=== PATIENT | female | born 1945 | race Caucasian/White ===

== ENCOUNTER 2016-05-04 04:34 | Inpatient (IN) | payer MEDICARE, OTHER ==
--- NOTE | ~2016-05-04 | EKG ---
PATIENT: ANGELA DOUGLAS UNIT #: [id number] Ventricular Rate: 114 BPM Atrial Rate: 83 BPM QRS Duration: 98 ms Q-T Interval: 356 ms QTC Calculation(Bezet): 490 ms Calculated R Brighton: -29 degrees Calculated T Brighton: 161 degrees Diagnosis Line: Atrial fibrillation with rapid ventricular Diagnosis Line: response Diagnosis Line: Poor R wave progression questionable lead position Diagnosis Line: or body habitus Diagnosis Line: T wave abnormality, consider lateral ischemia Diagnosis Line: Abnormal ECG Diagnosis Line: No previous ECGs available Diagnosis Line: Confirmed by TREY BACK MD ([id number]) on 05/04/2016 Diagnosis Line: 6:15:33 PM INTERPRETING MD: WONG WAGONER
--- NOTE | ~2016-05-04 | DS ---
Unit #: [id number] #: [id number] Patient: ANGELA DOUGLAS [id number] [address] [place], [place] [address] [id number] I MR#: [id number] NAME: ANGELA DOUGLAS. ROOM: 578 Age: 70 Sex: F Admission Date: 05/04/2016 : 1945 Discharge Date: 05/06/2016 Attending Physician: Valentino Das M.D. DISCHARGE SUMMARY DISCHARGE DIAGNOSES 1. Acute respiratory failure. 2. Acute on chronic diastolic and systolic heart failure. 3. Acute kidney injury. 4. Diabetes type 2. HOSPITAL COURSE The patient is a 70-year-old female who had apparently just been released from rehab the day prior. She got home, and she noted increased shortness of breath and noted that she was too short of breath to climb stairs and ambulate in her home. As a result, she presented to the emergency department where she was admitted for hypoxia and heart failure. The patient initially required O2 per nasal cannula and was started on 40 mg of IV Lasix b.i.d. She diuresed well and the following day refused to take any more IV Lasix. Her Lasix was switched to p.o. and, and the patient was seen by Physical Therapy and has done well. At the time of admission, the patient's creatinine was 2.2, and it is 2.0 at the time of discharge. This appears to be approximately her baseline which is about 1.6. I have held the patient's CHERELLE inhibitor at the time of discharge secondary to this kidney injury. I have discussed with the patient the option of going back to rehab, and she adamantly refuses. As a result, I am discharging her home at this time. DISCHARGE MEDICATIONS 1. Docusate as needed. 2. Dulcolax as needed. 3. Ultram 50 mg p.o. at bedtime. 4. MiraLax as needed. 5. Milk of Magnesia as needed. 6. Acetaminophen 650 mg p.o. q.6 hours p.r.n. 7. Bisacodyl suppository as needed. 8. Nitroglycerin 0.4 mg sublingual q.5 minutes x3 dose max p.r.n. chest pain. 9. Atorvastatin 80 mg daily. 10. Potassium 40 mEq p.o. b.i.d. 11. ProMod 60 mL p.o. b.i.d. 12. Eliquis 5 mg p.o. b.i.d. 13. Metoprolol succinate 100 mg p.o. b.i.d. 14. Hydralazine 50 mg p.o. b.i.d. 15. Ferrex 150 Forte 1 p.o. daily. Unit #: [id number] #: [id number] Patient: ANGELA DOUGLAS 16. Lasix 40 mg p.o. b.i.d. 17. Vitamin D 50,000 units weekly. 18. Magnesium oxide 250 mg p.o. daily. 19. Tradjenta 5 mg p.o. daily. 20. DuoNebs per nebulizer q.6 hours. 21. Synthroid 150 mcg p.o. daily. FOLLOWUP The patient should follow up with her primary care provider at the earliest available appointment. Dictated by... Sandy Chavez/renetta TD: 05/08/2016 20:16 JOB #: [id number] DISCHARGE SUMMARY X Valentino Das MD X DISCHARGE SUMMARY
--- NOTE | ~2016-05-04 | BMI ---
[facility] Nutrition Therapy DATE: 05/05/16 Patient: ANGELA DOUGLAS Physician: XANDER Address: [address] [facility] Room/Bed: [address] [place] [address], Zip: [place] [address] Admit Date: 05/04/16 Date of : [birth year] Height: 5 0 Weight: 218 99.2 HIGH BMI NOTE: DX: 70 y/o female admitted with weakness and SOA ANTHROPOMETRICS: Ht: 60", Wt: 218 lbs, BMI: 42.6 DIET: Consistent carb INTERVENTION: Add healthy heart, meds/fluids per MD RECOMMENDATIONS: Consider adding healthy heart to current diet order to promote a gradual weight loss towards a healthy BMI range. Respectfully, Zoraida Somers RD, LD Food and Nutritional [facility] cc: client file
--- NOTE | ~2016-05-04 | CR72 ---
[facility] A Service of [facility] & [facility] RADIOLOGY TEXT RESULTS PATIENT: ANGELA DOUGLAS LOCATION: [place] [address] : [birth year] UNIT #: [id number] AGE: [address]: Valentino Das MD SEX: F ORDER DR: [id number] [facility] [address] [facility]. [place], [place] [address] [id number] E MR#: [id number] Acc #: [id number] NAME: ANGELA DOUGLAS : 1945 SEX: F STUDY DATE/TIME: 05/04/2016 05:28 UNIT: [facility] ROOM: STUDY DESCRIPTION: CR Chest Single View Portable Attending Physician: Isael Kaur M.D. Ordering Physician: Isael Kaur M.D. Primary Care Physician: Primary Care Physician No MEDICAL IMAGING REPORT This report is preliminary unless electronic signature is present EXAM Portable chest 05/04 at 0528 hours INDICATIONS Weakness and shortness of air that started this morning. Patient discharged from rehab yesterday after a stroke recently. History of coronary artery disease. FINDINGS AP portable chest compared with 03/31/2016. Heart remains enlarged. Left side coronary stent is present. There is a small volume of left pleural fluid and there is some infiltrate or atelectasis in the left base. Right lung remains clear. There is no pneumothorax. Patient has a left shoulder arthroplasty. IMPRESSION Stable cardiomegaly with left side coronary stent. There is mild residual infiltrate or atelectasis at the left base with a small volume of left pleural fluid. Dictated by... Raymond Dickinson Jr., M.D. THIS IS AN ELECTRONICALLY VERIFIED REPORT Raymond Dickinson Jr., M.D. at 05/04/2016 3:57 PM JHONNY/prateek TD: 05/04/2016 08:12 JOB #: [id number] MEDICAL IMAGING REPORT COPY
--- NOTE | ~2016-05-04 | HP ---
Unit #: [id number] #: [id number] Patient: ANGELA DOUGLAS [id number] [address] [place], [place] [address] [id number] I MR#: [id number] NAME: ANGELA DOUGLAS. ROOM: 578 Age: 70 Sex: F Admission Date: 05/04/2016 : 1945 Attending Physician: Valentino Das M.D. Primary Care Physician: No Primary Care Physician HISTORY AND PHYSICAL CHIEF COMPLAINT Shortness of breath. HISTORY OF PRESENT ILLNESS The patient is a 70-year-old female just discharged from this facility last month, who represents with complaint of shortness of breath. She was just released from rehab, got home and discovered she was having significant trouble breathing. As a result, she represented to the emergency department. In the ED, she was noted to have oxygen saturations in the low eighties upon presentation. She was started on O2 per nasal cannula and her sats came up into the nineties. The patient denies cough and fever. She states her shortness of breath is worse with exertion and lying flat. PAST MEDICAL HISTORY Acute blood loss anemia, history of stroke, chronic systolic and diastolic heart failure, atrial fibrillation, coronary artery disease status post stent placement, hypertension, hyperlipidemia, diabetes mellitus, gout, morbid obesity, chronic immobility, osteoarthritis, noncompliance. PAST SURGICAL HISTORY Hysterectomy, D and C, cholecystectomy and left shoulder surgery. SOCIAL HISTORY The patient was recently released from rehab to home and found that she was too short of breath to ambulate. There is no alcohol, tobacco or illicit drug use. She does historically ambulate with a walker. FAMILY HISTORY Myocardial infarction. HOME MEDICATIONS 1. Ipratropium bromide. 2. Synthroid 150 mcg p.o. daily. 3. Magnesium oxide 250 mg p.o. daily. 4. Tradjenta 5 mg p.o. daily. 5. Vitamin D 50,000 units weekly. 6. Lisinopril 20 mg p.o. daily. 7. Ferrex 150 mg one p.o. daily. 8. Lasix 40 mg p.o. b.i.d. 9. Hydralazine 50 mg p.o. b.i.d. 10. Metoprolol succinate 100 mg p.o. b.i.d. 11. ProMod 60 mL p.o. b.i.d. 12. Eliquis 5 mg p.o. b.i.d. Unit #: [id number] #: [id number] Patient: ANGELA DOUGLAS 13. Potassium 40 mEq p.o. b.i.d. 14. Colchicine 0.6 mg p.o. t.i.d. after meals. 15. Atorvastatin 80 mg p.o. b.i.d. 16. Nitroglycerin 0.4 mg sublingual q.5 minutes x3 doses max p.r.n. chest pain. 17. Zofran 4 mg p.o. q.8 hours. 18. Bisacodyl p.r.n. 19. Milk of magnesia p.r.n. 20. Acetaminophen p.r.n. 21. Polyethylene glycol p.r.n. 22. Ultram 50 mg p.o. q.6 hours p.r.n. 23. Dulcolax p.r.n. 24. Enemeez p.r.n. REVIEW OF SYSTEMS A 10-point review of systems obtained. Negative except as per HPI with the addition of some diffuse weakness. PHYSICAL EXAMINATION GENERAL APPEARANCE: A 70-year-old female in no acute distress, appears stated age. VITAL SIGNS: Temperature 98.4. Pulse 116. Blood pressure 113/78. Oxygen saturation 84% on room air, 95% on three liters nasal cannula. HEENT: Pupils equal and round. Extraocular movements intact. Mucous membranes dry. NECK: Supple. No JVD. No lymphadenopathy. CARDIAC: Irregular rate and rhythm. No murmurs, gallops or rubs. LUNGS: Bilateral rales in the bases with equal air entry bilaterally. ABDOMEN: Nontender, nondistended. Positive bowel sounds. EXTREMITIES: No clubbing or cyanosis with trace bilateral lower extremity edema. They are warm and dry. PSYCHIATRIC: Alert and oriented x3. Affect is appropriate. NEUROLOGIC: Cranial nerves II-XII intact grossly. The patient moves all extremities equal and with purpose. SKIN: No rash, bruise or ulcer. MUSCULOSKELETAL: No muscle or joint pain. No muscle or joint swelling. DIAGNOSTIC STUDIES LABORATORY: Creatinine is 2.2 which is up from her baseline. Creatinine was 1.4 on April 04. CO2 was 34 which appears to be about her baseline. Albumin is 2.8 which is up from 2.2 on April 03. BNP is 1,006. INR is 1.2. White count is 4.6, hemoglobin 9.8, platelets 133. IMAGING: Chest x-ray shows mild residual infiltrate or atelectasis in the left lung base with pleural fluid. ASSESSMENT AND PLAN 1. Acute respiratory failure likely secondary to CHF exacerbation. I have switched the patient's diuretic to IV and will follow oxygen saturations. 2. Acute on chronic diastolic and systolic heart failure. As mentioned above, I have started the patient on aggressive diuresis. We will wean O2 as possible. 3. Acute kidney injury. The patient's creatinine was 1.4 on April 04. It is 2.2 today. Given her volume overload, I am not administering fluids at this time. I will continue to follow her creatinine given her aggressive diuresis. Given her ejection fraction of 20 to 25%, this may be some form of cardiorenal syndrome. Unit #: [id number] #: [id number] Patient: ANGELA DOUGLAS Gina 4. Diabetes. The patient has been started on low dose sliding scale a.c. and h.s. 5. Prophylaxis. The patient is on Eliquis and requires no further DVT prophylaxis. Dictated by Valentino Das M.D. FRANK/malvin TD: 05/05/2016 12:28 JOB #: [id number] HISTORY AND PHYSICAL X Valentino Das MD X HISTORY AND PHYSICAL
[~2016-05-04 04:34] MED LIST: AMARYL PO; AMARYL2 MG PO; AMLODIPINE BESYL5 MG PO; CALCIUM 600 +1 EAC9 PO; CARVEDILOL25 MG PO; CARVEDILOL6.25 MG PO; CELEBREX100 MG PO; CLOPIDOGREL BIS75 MG PO; CLOPIDOGREL75 MG PO; COLCHICINE0.6 M1 PO; COLCRYS0.6 M2 PO; COREG PO; COZAAR100 MG PO; DIABETA5 M1 PO; ELIQUIS5 MG PO; FERREX 150 FOR1 EACH PO; FUROSEMIDE40 MG PO; GLUCOPHAGE500 MG PO; ISOSORBIDE MONO30 M1 PO; KCL PO; KEFLEX500 M1 PO; LASIX PO; LIPITOR PO; LIPITOR20 MG DOB; LIPITOR40 MG PO; LISINOPRIL PO; LORTAB 5-325 M1 EACH PO; LOSARTAN POTAS100 MG PO; METFORMIN HCL500 M1 PO; METFORMIN PO; METOPROLOL SUC100 MG PO; MILK OF MAGNESIA PO; MIRALAX17 G2 PO; NITROGLYGERIN0.4 MG SL; NITROSTAT0.4 MG SL; NORVASC PO; PLAVIX PO; PROMOD946 ML; PROMOD946 ML PO; SYNTHROID137 MCG PO; TRADJENTA5 MG PO; TRAMADOL HCL50 M1 PO; ULTRAM PO; VITAMIN D35000 UNIT PO
[2016-05-04 05:21] LABS: BASOPHIL# 0.1 X10e3 (0-0.3); BASOPHIL% 1.5 % (0-2.5); EOSINOPHIL% 0.3 % (0.0-7.0); HEMATOCRIT 30.5 % (35.0-45.0); HEMOGLOBIN 9.8 gm/dL (12.0-16.0); LYMPHOCYTE# 1.6 X10e3 (1.0-3.5); LYMPHOCYTE% 35.7 % (17.0-45.0); MEAN CELL VOLUME 86.9 FL (83-96); MEAN CORPUSCULAR HEMOGLOBIN 27.9 PG (28-34); MEAN CORPUSCULAR HGB CONC 32.1 g/dL (30-36); MEAN PLATELET VOLUME 9.2 FL (6.5-11.5); MONOCYTE# 0.4 X10e3 (0-1.0); MONOCYTE% 9.8 % (3.0-12.0); NEUTROPHIL# 2.4 X10e3 (1.5-7.1); NEUTROPHIL% 52.7 % (40-75); PLATELET COUNT 133 X10e3 (140-420); WHITE BLOOD COUNT 4.6 X10e3 (4.0-10.5)
[2016-05-04 05:22] LABS: DIFF IND NO
[2016-05-04 05:29] LABS: POC - CKMB <1.0 ng/mL (0.0-7.9); POC - TROPONIN <0.05 ng/mL (<=0.05)
[2016-05-04 05:37] LABS: INR 1.2; PARTIAL THROMBOPLASTIN TIME 25.3 SECONDS (23.5-31.3); PROTHROMBIN TIME (PATIENT) 12.3 SECONDS (9.6-11.5)
[2016-05-04 06:03] LABS: ALBUMIN SERUM 2.8 g/dL (3.5-5.0); BILIRUBIN, DIRECT 0.4 mg/dL (0.0-0.2); BILIRUBIN,INDIRECT 0.7 mg/dL (0.0-0.9); BILIRUBIN,TOTAL 1.1 mg/dL (0.2-2.0); BUN/CREATININE RATIO 7.27; CALCIUM SERUM 7.8 mg/dL (8.4-10.2); CREATININE SERUM 2.2 mg/dL (0.6-1.4); GLOM FILT RATE Estimated 23.4 mL/min (>60); POTASSIUM 3.8 mmol/L (3.5-5.1); PROTEIN TOTAL SERUM 5.1 g/dL (6.0-8.3)
[2016-05-04] MEDS ORDERED: LEVOTHYROXINE150 MCG PO (11:06)
[2016-05-04] MEDS ORDERED: IPRAT-ALBUT 0.5-3 ML INH (11:06)
[2016-05-04] MEDS ORDERED: MAGNESIUM OXID250 M1 PO (11:07)
[2016-05-04] MEDS ORDERED: TRADJENTA5 MG PO (11:07)
[2016-05-04] MEDS ORDERED: VITAMIN D250000 UNIT PO (11:07)
[2016-05-04] MEDS ORDERED: LISINOPRIL20 MG PO (11:08)
[2016-05-04] MEDS ORDERED: VITAMIN D50000 UNIT PO (11:09)
[2016-05-04] MEDS ORDERED: FERREX 150 FOR1 EACH PO (11:10)
[2016-05-04] MEDS ORDERED: FUROSEMIDE40 MG PO (11:10)
[2016-05-04] MEDS ORDERED: HYDRALAZINE HCL50 MG PO (11:11)
[2016-05-04] MEDS ORDERED: METOPROLOL SUC100 MG PO (11:12)
[2016-05-04] MEDS ORDERED: ELIQUIS5 MG PO (11:14)
[2016-05-04] MEDS ORDERED: PROMOD PO (11:14)
[2016-05-04] MEDS ORDERED: K-DUR20 ME1 PO (11:16)
[2016-05-04] MEDS ORDERED: COLCHICINE0.6 M1 PO (11:17)
[2016-05-04] MEDS ORDERED: ATORVASTATIN CA80 MG PO (11:17)
[2016-05-04] MEDS ORDERED: NITROGLYCERIN0.4 MG SL (11:18)
[2016-05-04] MEDS ORDERED: ZOFRAN PO (11:19)
[2016-05-04] MEDS ORDERED: BISACODYL EC5 M1 PO (11:20)
[2016-05-04] MEDS ORDERED: ACETAMINOPHEN PO (11:21)
[2016-05-04] MEDS ORDERED: MILK OF MAGNESIA PO (11:21)
[2016-05-04] MEDS ORDERED: POLYETHYLENE GL17 GM PO (11:22)
[2016-05-04] MEDS ORDERED: ULTRAM PO (11:25)
[2016-05-04] MEDS ORDERED: DULCOLAX10 MG/SUPP PR (11:26)
[2016-05-04] MEDS ORDERED: ENEMEEZ283 MG/EN1 PR (11:27)
[2016-05-04] MEDS ORDERED: GLUCAGEN1 MG/KIT INJ (11:30)
[2016-05-05 05:28] LABS: BASOPHIL% 1.1 % (0-2.5); EOSINOPHIL% 0.9 % (0.0-7.0); HEMATOCRIT 28.4 % (35.0-45.0); HEMOGLOBIN 9.2 gm/dL (12.0-16.0); LYMPHOCYTE# 1.4 X10e3 (1.0-3.5); LYMPHOCYTE% 38.3 % (17.0-45.0); MEAN CELL VOLUME 87.9 FL (83-96); MEAN CORPUSCULAR HEMOGLOBIN 28.5 PG (28-34); MEAN CORPUSCULAR HGB CONC 32.4 g/dL (30-36); MEAN PLATELET VOLUME 9.6 FL (6.5-11.5); MONOCYTE# 0.4 X10e3 (0-1.0); MONOCYTE% 9.5 % (3.0-12.0); NEUTROPHIL# 1.9 X10e3 (1.5-7.1); NEUTROPHIL% 50.2 % (40-75); PLATELET COUNT 105 X10e3 (140-420); RED BLOOD COUNT 3.23 X10e (3.90-5.30); RED CELL DISTRIBUTION WIDTH 20.3 % (11.0-15.5); WHITE BLOOD COUNT 3.8 X10e3 (4.0-10.5)
[2016-05-05 05:30] LABS: DIFF IND NO
[2016-05-05 06:55] LABS: BUN/CREATININE RATIO 7.14; CALCIUM SERUM 8.1 mg/dL (8.4-10.2); CREATININE SERUM 2.1 mg/dL (0.6-1.4); GLOM FILT RATE Estimated 24.7 mL/min (>60); POTASSIUM 3.1 mmol/L (3.5-5.1)
[2016-05-06 07:08] LABS: HEMOGLOBIN 9.2 gm/dL (12.0-16.0); MEAN CELL VOLUME 87.2 FL (83-96); MEAN CORPUSCULAR HEMOGLOBIN 27.5 PG (28-34); MEAN CORPUSCULAR HGB CONC 31.6 g/dL (30-36); MEAN PLATELET VOLUME 9.7 FL (6.5-11.5); RED BLOOD COUNT 3.33 X10e (3.90-5.30); RED CELL DISTRIBUTION WIDTH 19.8 % (11.0-15.5); WHITE BLOOD COUNT 3.8 X10e3 (4.0-10.5)
[2016-05-06 07:45] LABS: GLOM FILT RATE Estimated 26.1 mL/min (>60); POTASSIUM 3.1 mmol/L (3.5-5.1)
[2016-06-30] MEDS ORDERED: IRON325 MG PO (05:52)
[2016-06-30] MEDS ORDERED: AMARYL PO (05:52)
== END 2016-05-06 16:09 | disposition home or self-care (01) | DRG 291 ==
LOC: CED 04:34 → CEDOF 07:17 → C5C 15:24
PROVIDERS: Emergency Medicine; Internal Medicine
DX: I50.43 Acute on chronic combined systolic (congestive) and diastolic (congestive) heart failure (principal); J96.01 Acute respiratory failure with hypoxia; N17.9 Acute kidney failure, unspecified; Z68.44 Body mass index [BMI] 60.0-69.9, adult; E11.22 Type 2 diabetes mellitus with diabetic chronic kidney disease; I07.1 Rheumatic tricuspid insufficiency; E66.01 Morbid (severe) obesity due to excess calories; E11.9 Type 2 diabetes mellitus without complications; Z86.73 Personal history of transient ischemic attack (TIA), and cerebral infarction without residual deficits; I12.9 Hypertensive chronic kidney disease with stage 1 through stage 4 chronic kidney disease, or unspecified chronic kidney disease; N18.9 Chronic kidney disease, unspecified; R41.0 Disorientation, unspecified; G47.33 Obstructive sleep apnea (adult) (pediatric); E78.5 Hyperlipidemia, unspecified; E87.6 Hypokalemia; M19.90 Unspecified osteoarthritis, unspecified site
CPT/HCPCS: 71010; 80048; 80076; 82553; 82947; 83880; 84484; 85025; 85027; 85610; 85730; 87040; 93005; 94640; 94760; 96374; 96375; 97110; 97116; 97161; 97166; 97530; 99291; G8978-GP; G8979-GP; G8987-GO; G8988-GO; J1815; J1940

== ENCOUNTER 2016-06-30 06:38 | Inpatient (IN) | payer MEDICARE, OTHER ==
--- NOTE | ~2016-06-30 | BMI ---
[facility] Nutrition Therapy DATE: 07/01/16 Patient: ANGELA DOUGLAS Physician: NOEMI Address: [address] [place] [address] Room/Bed: [address] [place] [address], Zip: [place] [address] Admit Date: 06/30/16 Date of : [birth year] Height: 5 0 Weight: 220 100 HIGH BMI NOTE: DX: 71 y/o female admitted with chest pain ANTHROPOMETRICS: Ht: 60", Wt: 220 lbs, BMI: 42 (Stage III obese) DIET: CC/HH + fluid restriction INTERVENTION: Restricted diet, meds/fluids per MD RECOMMENDATIONS: Continue current diet due to PMH and to promote a gradual weight loss towards a healthy BMI range. Respectfully, Zoraida Somers RD, LD Food and Nutritional Services [facility] cc: client file
--- NOTE | ~2016-06-30 | EKG ---
PATIENT: ANGELA DOUGLAS UNIT #: [id number] Ventricular Rate: 94 BPM Atrial Rate: 83 BPM QRS Duration: 108 ms Q-T Interval: 332 ms QTC Calculation(Bezet): 415 ms Calculated R [place]: -41 degrees Calculated T [place]: 161 degrees Diagnosis Line: Atrial fibrillation Diagnosis Line: Left axis deviation Diagnosis Line: Incomplete left bundle branch block Diagnosis Line: ST and T wave abnormality, consider lateral ischemia Diagnosis Line: Abnormal ECG Diagnosis Line: When compared with ECG of 04-MAY-2016 04:11, Diagnosis Line: No significant change was found Diagnosis Line: Confirmed by GUTIERREZ WILBURN MD ([id number]) on Diagnosis Line: 06/30/2016 7:26:47 AM INTERPRETING ALEJANDRA LIN
--- NOTE | ~2016-06-30 | CR72 ---
[facility] A Service of [facility] & [facility] RADIOLOGY TEXT RESULTS PATIENT: ANGELA DOUGLAS LOCATION: [facility] : 44 UNIT #: [id number] AGE: [address]: Isael Gonzales MD SEX: F ORDER DR: [id number] [facility] [address] [place], [place] [address] [id number] E MR#: [id number] #: [id number] NAME: ANGELA DOUGLAS. : 1945 SEX: F STUDY DATE/TIME: 06/30/2016 6:21 UNIT: [facility] ROOM: STUDY DESCRIPTION: CR Chest Single View Portable Attending Physician: Kendall Gonzales M.D. Ordering Physician: Ed Doctor [id number] [facility] Primary Care Physician: Primary Care Physician No MEDICAL IMAGING REPORT This report is preliminary unless electronic signature is present EXAM Portable chest 06/30/2016 INDICATION Chest pain, CHF. Symptoms started tonight. FINDINGS AP portable chest compared with 05/04/2016. Cardiomegaly stable. Left side coronary stent is present. There is chronic small left pleural effusion with some atelectasis or infiltrate at the left base. Right lung clear. No pneumothorax. Patient has a left shoulder arthroplasty. IMPRESSION Stable cardiomegaly with a chronic small left effusion. There is some infiltrate or atelectasis at the left base behind the heart. Dictated by... Raymond Dickinson Jr., M.D. THIS IS AN ELECTRONICALLY VERIFIED REPORT Raymond Dickinson Jr., M.D. at 06/30/2016 7:37 AM JHONNY/evelyn TD: 06/30/2016 07:24 JOB #: [id number] MEDICAL IMAGING REPORT Page 1 of 1 COPY
--- NOTE | ~2016-06-30 | DS ---
Unit #: [id number] #: [id number] Patient: ANGELA DOUGLAS [id number] [address] [address] [id number] I MR#: [id number] NAME: ANGELA DOUGLAS. ROOM: 330 Age: 71 Sex: F Admission Date: 07/02/2016 : 1945 Discharge Date: 07/03/2016 Attending Physician: Homero Shields M.D. Primary Care Physician: No Primary Care Physician DISCHARGE SUMMARY DISCHARGE DIAGNOSES 1. Atypical chest pain, ruled out for myocardial infarction. 2. Severe hypokalemia now resolved. 3. Permanent atrial fibrillation on anticoagulation with Eliquis. 4. Acute gouty arthritis, uric acid of 8.8, much improved. 5. Ischemic heart disease with an ejection fraction of 25%. 6. History of myocardial infarction with percutaneous coronary intervention and stents at [facility]. 7. Hypertension. 8. Hyperlipidemia. 9. Diabetes mellitus type 2. 10. History of cerebrovascular accident. 11. Hyperglycemia secondary to steroids. 12. Chronic kidney disease. CONSULTANTS There were no consultants on this case. DISCHARGE MEDICATIONS 1. Ipratropium/albuterol mini-neb q.6 hours p.r.n. 2. Magnesium oxide 250 mg tablet p.o. daily. 3. Eliquis 5 mg p.o. b.i.d. 4. Atorvastatin 80 mg p.o. q.h.s. 5. Metoprolol succinate 75 mg p.o. b.i.d. 6. Tradjenta 5 mg p.o. daily. 7. Furosemide 40 mg p.o. b.i.d. 8. Hydralazine 50 mg p.o. b.i.d. 9. Ferrous sulfate 325 mg p.o. daily. 10. Allopurinol 100 mg p.o. daily. 11. Tramadol 50 mg p.o. q.6 hours as needed for pain. 12. Potassium chloride 20 mEq p.o. b.i.d. 13. Amaryl 40 mg p.o. daily. 14. Levothyroxine 150 mcg p.o. daily. 15. Imdur 30 mg p.o. daily. 16. Nitroglycerin 0.4 mg sublingual p.r.n. chest pain. 17. Vitamin D 50,000 units p.o. weekly. HOSPITAL COURSE This is a pleasant 71-year-old female who is well know and follows routine with Dr. Myles. She has a history of VT in the past, status post PCI and stent. She is known to have severe LV systolic and diastolic dysfunction with an ejection fraction of 20% to 25%. She has chronic biventricular heart failure and permanent atrial fibrillation for which he is on anticoagulation with Eliquis. The patient was admitted Unit #: [id number] #: [id number] Patient: ANGELA DOUGLAS with complaints of a sharp left anterior chest discomfort. It was determined this was chest wall pain. Cardiac enzymes have been unremarkable. EKG shows atrial fibrillation with left axis deviation, incomplete left bundle, no acute ischemic change. The patient was also noted to have hypokalemia on admission. This has been since corrected. She also has known chronic kidney disease. It appears her creatinine is about at its baseline. During this admission the patient was also found to have acute gouty arthritis, for which she was given 1 IM dose of Depo-Medrol and started on colchicine 0.6 mg p.o. b.i.d. Uric acid level was also checked and that was consistent with elevation as uric acid at 8.8. Throughout her hospitalization she has remained stable. Remains in atrial fibrillation. No complaints of acute chest pain or shortness of breath. At present she is up in chair. She states her gout is much improved and it is thought she is stable for discharge home today. The patient follows typically with [facility] in the home. PAST MEDICAL HISTORY 1. 2D echo on 03/30/2016 shows LVEF of 20% to 25% with grade 3 diastolic dysfunction. Moderate MR. Moderate to severe TR and right ventricular systolic pressure of 35 mmHg. 2. Lexiscan on 09/30/2015 shows questionable nontransmural inferior infarct, moderate apical infarction, very mild ischemia in the distal anterior wall in the jose luis area of apical infarct, EF of 25% to 30%. 3. Chronic systolic and diastolic heart failure. 4. Permanent atrial fibrillation on anticoagulation with Eliquis. 5. History of VT in the past with PCI and stents done at [facility]. The patient routinely follows with Dr. Myles. 6. Hypertension. 7. Hyperlipidemia. 8. Diabetes mellitus type 2. 9. History of CVA. 10. Aspirin allergy. 11. Hypothyroidism. 12. Obstructive sleep apnea. 13. Chronic kidney disease. 14. Immobility syndrome. 15. Gout. 16. Nonsmoker. DIAGNOSTIC STUDIES LABORATORY STUDIES: Glucose 289, BUN 38, creatinine 1.8, sodium 133, potassium 4.8, chloride 99, CO2 25, uric acid 8.8 on 07/01/2016. Hemoglobin 10.6, hematocrit 33.6, WBC 10.9, platelet count 231. Troponins have been less than 0.05, peak of 0.06. CARDIOLOGY STUDIES: Cardiovascular - EKG shows AFib with controlled ventricular rate, 94 BPM, left axis deviation, incomplete left bundle branch block. PHYSICAL EXAMINATION GENERAL: This is a pleasant 71-year-old female in no acute distress. VITAL SIGNS: Temperature 97.8, respiratory rate 18, pulse 98, blood pressure 124/83 to 150/83. HEENT: Head is atraumatic and normocephalic. Pupils are equal and round. Mucous membranes are moist. CARDIOVASCULAR: S1 and S2. Irregularly irregular. No murmur, gallop or Unit #: [id number] #: [id number] Patient: ANGELA DOUGLAS. LUNGS: Clear to auscultation. No rales, rhonchi or wheezes. ABDOMEN: Soft, nontender, nondistended. Bowel sounds positive. EXTREMITIES: Pulses are palpable. No clubbing or cyanosis. Patient does have swelling still in the left foot, much improved from on admission. NEUROLOGIC: She is awake, alert and oriented x3. There is no deficits. Moves all extremities equally. Follows commands with ease. DISCHARGE INSTRUCTIONS The patient has been seen and evaluated by Dr. Aguilar today. It is felt she is stable for discharge. During this admission she was found to have some elevated heart rates requiring increase of her beta-ev dosing. She has tolerated the increased dose of Toprol, up to 75 mg b.i.d. with no blood pressure issues. Her gout has been treated and is much improved. Her IV steroids have been discontinued. She will be sent home on Allopurinol 100 mg p.o. daily as per MAY. The patient is notified to follow up with her primary care team, which is [facility]. She appears euvolemic. There is no signs or symptoms of congestive heart failure on examination. There is no complaints of chest pain. Her BMP was reviewed prior to discharge and her potassium was 4.8. It was slightly high this morning but has come down. She will also go out on continued anticoagulation with Eliquis. The patient was advised to schedule followup with Dr. Myles who is her primary cardiology for followup appointment in two to four weeks. She was again advised on the importance of following a fluid restriction low sodium diet and importance of monitoring weights and educated on the signs and symptoms of congestive heart failure. The patient was agreeable and verbalized understanding. Dictated by... Lalo Abraham/kapil TD: 07/04/2016 06:09 JOB #: [id number] DISCHARGE SUMMARY Page 1 of 1 X Ariana Jasso APRN X DISCHARGE SUMMARY
--- NOTE | ~2016-06-30 | HP ---
Unit #: [id number] #: [id number] Patient: ANGELA DOUGLAS [id number] [address] [place], [place] [address] [id number] MR#: [id number] NAME: ANGELA DOUGLAS ROOM: Age: 71 Sex: F Admission Date: 06/30/2016 : 1945 Attending Physician: Kendall Gonzales M.D. Primary Care Physician: No Primary Care Physician HISTORY AND PHYSICAL HISTORY OF PRESENT ILLNESS This is a 71-year-old white female who is known to Dr. Myles and has a history of myocardial infarction for which she underwent PCI and stent placement in the past. She is known to have severe left ventricular systolic and diastolic dysfunction with an ejection fraction of 20%-25%. She has chronic biventricular congestive heart failure and primary atrial fibrillation for which she is on anticoagulation with Eliquis. She was discharged from this facility in 04/2016 for decompensated heart failure. After discharge the patient went to a rehab facility. She has been followed by home health with physical therapy because of immobility syndrome. The patient complained of sharp left anterior chest discomfort that occurred when she was working with physical therapy, ambulating. Chest pain was worse after she sat and rested. She has had intermittent episodes for the past two to three days. There is no radiation to her neck, arm, mid back or jaw. No associated dyspnea, but does have palpitations. She does have dyspnea with that occurs in the absence of chest pain on occasion with nonproductive cough. She denies paroxysmal nocturnal dyspnea or orthopnea. No fever or chills. She also has a complaint of left great toe pain that she relates to gout. She was seen by a physician with [facility] two weeks ago and was told to be in atrial fibrillation with rapid ventricular response, where she states her heart rate was 136 beats per minute. There was an increase in one of her medications from b.i.d. to t.i.d. Today she was seen by the home health nurse and because of her gout pain and chest pain it was suggested that she comes to the emergency room for evaluation. In the emergency room troponin initially was negative with no acute ischemic changes on the electrocardiogram. There was some mild elevation of BNP of 912, but no evidence of acute heart failure on chest x-ray or examination. She was found to be severely hypokalemic with potassium of 2.3. White count is elevated at 14.9. She is known to have chronic kidney disease and creatinine is at her baseline of 1.7. PAST MEDICAL HISTORY 1. Two-dimensional echocardiogram 03/30/2016 showed an ejection fraction equal to 20%-25% with grade 3 diastolic dysfunction. Moderate mitral regurgitation, moderate to severe tricuspid regurgitation and right ventricular systolic pressure of 35 mmHg. 2. Lexiscan cardiovascular stress test 09/30/2015 shows questionable nontransmural inferior infarction. There is moderate apical infarction. Very mild ischemia in the distal anterior wall in the jose luis-infarct area of apical infarct. Ejection fraction of 25%-30%. Unit #: [id number] #: [id number] Patient: ANGELA DOUGLAS 3. Chronic systolic/diastolic heart failure. 4. Permanent atrial fibrillation on anticoagulation with Eliquis. 5. History of myocardial infarction with PCI and stent done at [facility]. No details available. 6. Hypertension. 7. Hyperlipidemia. 8. Diabetes mellitus type 2. 9. History of CVA. 10. Aspirin allergy. 11. Hypothyroidism. 12. Obstructive sleep apnea. 13. Immobility syndrome. 14. Obesity. 15. Chronic kidney disease. 16. Gout. 17. Nonsmoker. PAST SURGICAL HISTORY 1. Left shoulder surgery. 2. Hysterectomy. 3. Cholecystectomy. 4. D and C. SOCIAL HISTORY The patient lives with an elderly friend. No record of illicit drug or alcohol use. FAMILY HISTORY Mother from a myocardial infarction at age 70. ALLERGIES Aspirin, iodine, prednisone, Benadryl, integument, simvastatin and meloxicam, Otitis Aliskiren and prednisone. HOME MEDICATIONS 1. Combivent mini-nebs q.6 h. 2. Levothyroxine 150 mcg daily. 3. Magnesium oxide 250 mg daily. 4. Tradjenta 5 mg daily. 5. Vitamin D 50,000 units weekly. 6. Furosemide 40 mg b.i.d. 7. Hydralazine 50 mg b.i.d. 8. Metoprolol succinate 50 mg b.i.d. 9. Eliquis 5 mg b.i.d. 10. Potassium chloride 20 mEq b.i.d. 11. Atorvastatin 80 mg at nighttime. 12. Nitroglycerin 0.4 mg sublingual p.r.n. 13. Tramadol 50 mg q.6 h. p.r.n. 14. Amaryl 4 mg daily. 15. Iron sulfate 325 mg daily. REVIEW OF SYSTEMS A 10-point review of systems is negative except for details stated in history of present illness. PHYSICAL EXAMINATION GENERAL: This is a 71-year-old, anxious, middle-aged male who is in no acute respiratory distress. Unit #: [id number] #: [id number] Patient: ANGELA DOUGLAS VITALS: Blood pressure 157/83, heart rate 93, temperature 97.9. NECK: Trachea midline. No thyromegaly or lymphadenopathy. No jugular venous distension. LUNGS: Clear to auscultation without rales, rhonchi or wheezes. HEART: S1 and S2. Heart sounds are normal. No murmurs, rubs or clicks. Irregularly irregular rhythm. ABDOMEN: soft, obese, with bowel sounds present. EXTREMITIES: With left foot pedal edema. SKIN: Warm and dry. Noted for malodorous abdominal redness that appears to be a yeast infection. NEUROLOGIC: He is awake, alert and oriented. There is no focal weakness. DIAGNOSTIC STUDIES IMAGING: Chest x-ray shows stable cardiomegaly. There is chronic small left pleural effusion. LABORATORY: Glucose 110, BUN 17, creatinine 1.7, sodium 141, potassium 2.3, BNP 912, troponin less than 0.05. White blood cell count 14.9, hemoglobin 11.6, hematocrit 36.9, platelets 200. CARDIOVASCULAR: Electrocardiogram, atrial fibrillation and controlled ventricular rate of 94 beats per minute with left axis deviation. Incomplete left bundle branch block. ASSESSMENT 1. Chest pain, atypical for ischemic heart disease. 2. Severe hypokalemia. 3. Permanent atrial fibrillation. 4. Stable angina. 5. Acute gouty arthritis. 6. History of myocardial infarction with PCI and stent in the past. 7. Chronic systolic/diastolic heart failure. 8. Chronic kidney disease. 9. Ischemic cardiomyopathy with an ejection fraction of 20%-25%. 10. Malodorous abdominal fold yeast infection. PLAN 1. The patient's chest pain is atypical for ischemic heart disease. Chest pain is reproducible with palpation to her chest. Troponin initially negative with no acute ischemic changes on electrocardiogram. Will continue to trend troponin to rule out myocardial infarction. 2. Will ask wound care to see the patient for abdominal skin infection. 3. Supplement potassium. 4. Will give Depo-Medrol and colchicine along with pain medications for gouty arthritis. 5. Repeat serum uric acid in the a.m. 6. Start on oral nitrates with Imdur. 7. If troponin is negative in the a.m., will discharge the patient home. Dictated by Sheree HallPNanciRNanciNNanci for Sandy Hughes/erendira TD: 06/30/2016 14:44 JOB #: [id number] Unit #: [id number] #: [id number] Patient: STELLAANGELA Gina CC: [facility] Marielle Myles M.D. HISTORY AND PHYSICAL Page 1 of 1 X Miguel Quinteros APRN X HISTORY AND PHYSICAL
[2016-06-30 06:10] LABS: BASOPHIL# 0.1 X10e3 (0-0.3); BASOPHIL% 0.5 % (0-2.5); EOSINOPHIL% 0.1 % (0.0-7.0); HEMATOCRIT 36.9 % (35.0-45.0); HEMOGLOBIN 11.6 gm/dL (12.0-16.0); LYMPHOCYTE# 1.9 X10e3 (1.0-3.5); LYMPHOCYTE% 12.4 % (17.0-45.0); MEAN CELL VOLUME 86.7 FL (83-96); MEAN CORPUSCULAR HEMOGLOBIN 27.4 PG (28-34); MEAN CORPUSCULAR HGB CONC 31.6 g/dL (30-36); MEAN PLATELET VOLUME 8.6 FL (6.5-11.5); MONOCYTE# 1.2 X10e3 (0-1.0); MONOCYTE% 8.3 % (3.0-12.0); NEUTROPHIL# 11.8 X10e3 (1.5-7.1); NEUTROPHIL% 78.7 % (40-75); PLATELET COUNT 200 X10e3 (140-420); RED BLOOD COUNT 4.25 X10e (3.90-5.30); RED CELL DISTRIBUTION WIDTH 16.8 % (11.0-15.5); WHITE BLOOD COUNT 14.9 X10e3 (4.0-10.5)
[2016-06-30 06:12] LABS: DIFF IND NO
[2016-06-30 06:17] LABS: POC - CKMB <1.0 ng/mL (0.0-7.9); POC - TROPONIN <0.05 ng/mL (<=0.05)
[~2016-06-30 06:38] MED LIST changes: +ACETAMINOPHEN PO; +ATORVASTATIN CA80 MG PO; +BISACODYL EC5 M1 PO; +DULCOLAX10 MG/SUPP PR; +ENEMEEZ283 MG/EN1 PR; +GLUCAGEN1 MG/KIT INJ; +HYDRALAZINE HCL50 MG PO; +IPRAT-ALBUT 0.5-3 ML INH; +IRON325 MG PO; +K-DUR20 ME1 PO; +LEVOTHYROXINE150 MCG PO; +LISINOPRIL20 MG PO; +MAGNESIUM OXID250 M1 PO; +NITROGLYCERIN0.4 MG SL; +POLYETHYLENE GL17 GM PO; +PROMOD PO; +VITAMIN D250000 UNIT PO; +VITAMIN D50000 UNIT PO; +ZOFRAN PO
[2016-06-30 06:40] LABS: ALBUMIN SERUM 2.8 g/dL (3.5-5.0); BILIRUBIN, DIRECT 0.2 mg/dL (0.0-0.2); BILIRUBIN,INDIRECT 0.7 mg/dL (0.0-0.9); BILIRUBIN,TOTAL 0.9 mg/dL (0.2-2.0); CALCIUM SERUM 8.5 mg/dL (8.4-10.2); CREATININE SERUM 1.7 mg/dL (0.6-1.4); GLOM FILT RATE Estimated 29.6 mL/min (>60)
[2016-06-30 06:43] LABS: POTASSIUM 2.3 mmol/L (3.5-5.1)
[2016-06-30 08:12] LABS: POC - CKMB <1.0 ng/mL (0.0-7.9); POC - TROPONIN <0.05 ng/mL (<=0.05)
[2016-06-30 15:37] LABS: %MB 1.1 % (0.0-4.0)
[2016-06-30 19:33] LABS: MAGNESIUM 1.6 mg/dL (1.6-3.0)
[2016-06-30 19:40] LABS: POTASSIUM 2.6 mmol/L (3.5-5.1)
[2016-06-30 20:22] LABS: MB 2.5 ng/ml
[2016-07-01 03:27] LABS: BUN/CREATININE RATIO 11.87; CREATININE SERUM 1.6 mg/dL (0.6-1.4); GLOM FILT RATE Estimated 31.9 mL/min (>60); POTASSIUM 3.3 mmol/L (3.5-5.1); URIC ACID 8.8 mg/dL (2.6-7.2)
[2016-07-01 03:28] LABS: HEMATOCRIT 32.1 % (35.0-45.0); HEMOGLOBIN 10.4 gm/dL (12.0-16.0); MEAN CELL VOLUME 85.7 FL (83-96); MEAN CORPUSCULAR HEMOGLOBIN 27.7 PG (28-34); MEAN CORPUSCULAR HGB CONC 32.3 g/dL (30-36); MEAN PLATELET VOLUME 8.6 FL (6.5-11.5); RED BLOOD COUNT 3.74 X10e (3.90-5.30); RED CELL DISTRIBUTION WIDTH 16.6 % (11.0-15.5); WHITE BLOOD COUNT 13.4 X10e3 (4.0-10.5)
[2016-07-02 13:53] LABS: HEMATOCRIT 33.6 % (35.0-45.0); HEMOGLOBIN 10.6 gm/dL (12.0-16.0); MEAN CELL VOLUME 87.4 FL (83-96); MEAN CORPUSCULAR HEMOGLOBIN 27.6 PG (28-34); MEAN CORPUSCULAR HGB CONC 31.6 g/dL (30-36); MEAN PLATELET VOLUME 8.9 FL (6.5-11.5); RED BLOOD COUNT 3.85 X10e (3.90-5.30); RED CELL DISTRIBUTION WIDTH 16.5 % (11.0-15.5); WHITE BLOOD COUNT 10.9 X10e3 (4.0-10.5)
[2016-07-02 14:29] LABS: BUN/CREATININE RATIO 18.88; CALCIUM SERUM 8.4 mg/dL (8.4-10.2); CREATININE SERUM 1.8 mg/dL (0.6-1.4); GLOM FILT RATE Estimated 27.6 mL/min (>60); POTASSIUM 5.2 mmol/L (3.5-5.1)
[2016-07-03] MEDS ORDERED: TOPROL XL50 MG PO (11:59)
[2016-07-03] MEDS ORDERED: IMDUR-ER30 M1 PO (12:00)
[2016-07-03] MEDS ORDERED: ZYLOPRIM100 MG PO (12:00)
[2016-07-03 13:13] LABS: BUN/CREATININE RATIO 21.11; CALCIUM SERUM 8.6 mg/dL (8.4-10.2); CREATININE SERUM 1.8 mg/dL (0.6-1.4); GLOM FILT RATE Estimated 27.6 mL/min (>60); POTASSIUM 4.8 mmol/L (3.5-5.1)
== END 2016-07-03 18:34 | disposition home or self-care (01) | DRG 313 ==
LOC: CED 06:38 → CEDOF 13:30 → C3A PCU 07-02 10:26
PROVIDERS: Emergency Medicine; Internal Medicine Cardiovascular Disease
DX: R07.89 Other chest pain (principal); I25.2 Old myocardial infarction; I50.42 Chronic combined systolic (congestive) and diastolic (congestive) heart failure; E11.22 Type 2 diabetes mellitus with diabetic chronic kidney disease; I13.0 Hypertensive heart and chronic kidney disease with heart failure and stage 1 through stage 4 chronic kidney disease, or unspecified chronic kidney disease; Z68.41 Body mass index [BMI] 40.0-44.9, adult; Z79.01 Long term (current) use of anticoagulants; Z95.5 Presence of coronary angioplasty implant and graft; I48.2 Chronic atrial fibrillation; Z88.6 Allergy status to analgesic agent; N18.9 Chronic kidney disease, unspecified; E03.9 Hypothyroidism, unspecified; E78.5 Hyperlipidemia, unspecified; M62.3 Immobility syndrome (paraplegic); Z90.49 Acquired absence of other specified parts of digestive tract; Z90.710 Acquired absence of both cervix and uterus; E87.6 Hypokalemia; M10.9 Gout, unspecified; I25.5 Ischemic cardiomyopathy; T38.0X5A Adverse effect of glucocorticoids and synthetic analogues, initial encounter; I25.10 Atherosclerotic heart disease of native coronary artery without angina pectoris; E66.01 Morbid (severe) obesity due to excess calories; G47.33 Obstructive sleep apnea (adult) (pediatric)
CPT/HCPCS: 36415; 71010; 80048; 80076; 82550; 82553; 82947; 83735; 83880; 84132; 84484; 84550; 85025; 85027; 93005; 94640; 94760; 99285; J1040; J1815; J2920; J3480

== ENCOUNTER → 2016-07-20 | Outpatient (CLI) | payer MEDICARE, OTHER ==
[~2016-07-20] MED LIST changes: +IMDUR-ER30 M1 PO; +LEVOXYL0.137 MG PO; +POTASSIUM40 MEQ/15 PO; +TOPROL XL PO; +TOPROL XL50 MG PO; +ZYLOPRIM100 MG PO
--- NOTE | ~2016-07-20 | MY11 ---
[facility] A Service of [facility] RADIOLOGY TEXT RESULTS PATIENT: ANGELA DOUGLAS LOCATION: [facility] : 44 UNIT #: [id number] AGE: [address]: SADIA NATION APRN SEX: F ORDER DR: [id number] [facility] [address] [place], [place] [address] [id number] O MR#: [id number] Acc #: [id number] NAME: ANGELA DOUGLAS. : 1945 SEX: F STUDY DATE/TIME: 07/20/2016 13:14 UNIT: [facility] ROOM: STUDY DESCRIPTION: MY Mammogram Screening Dig Tevin Attending Physician: Jarod Nation Aprn Referring Physician: Raysa Primary Care Physician Ordering Physician: Jarod Nation Aprn Primary Care Physician: Jarod Nation Aprn MEDICAL IMAGING REPORT This report is preliminary unless electronic signature is present EXAM Digital screening mammogram, 07/20/2016, [facility]. HISTORY 71-year-old woman for baseline mammogram. No risk elevation. COMPARISON None. TECHNIQUE Digital imaging of each breast was completed utilizing screening protocol. Review includes FDA-approved CAD device. FINDINGS Breast parenchyma is predominantly fatty replaced bilaterally. Occasional benign calcification is noted in each breast. Left breast appears negative. There is an approximate 12 x 19 mm nodule, immediately deep to the right nipple. I expect this is benign, however, it warrants further characterization with spot compression views and targeted right breast ultrasound. There are no suspicious microcalcifications and no architectural deformity. IMPRESSION Incomplete mammographic evaluation. Additional right breast imaging is recommended. This would include spot compression views and targeted right breast ultrasound. See full report in this regard. Patients over the age of 40 are entered into a reminder system with target due date for the next mammogram. A result letter will also be sent to the patient. BIRADS: 0 Incomplete; need additional imaging evaluation and/or prior mammograms for comparison. [facility] A Service [facility] RADIOLOGY TEXT RESULTS PATIENT: ANGELA DOUGLAS LOCATION: [facility] : 44 UNIT #: [id number] AGE: [address]: SADIA NATION APRN SEX: F ORDER DR: Dictated by... Jonathan Chaudhari M.D. THIS IS AN ELECTRONICALLY VERIFIED REPORT Jonathan Chaudhari M.D. at 07/20/2016 3:26 PM SIMONE/carlos TD: 07/20/2016 15:23 JOB #: [id number] MEDICAL IMAGING REPORT Page 1 of 1 COPY
== END | disposition home or self-care (01) ==
LOC: CWCC 12:54
DX: Z12.31 Encounter for screening mammogram for malignant neoplasm of breast (principal); R92.8 Other abnormal and inconclusive findings on diagnostic imaging of breast
CPT/HCPCS: G0202

== ENCOUNTER 2016-08-01 09:30 | Emergency (ER) | payer MEDICARE, OTHER ==
--- NOTE | ~2016-08-01 | CT4 ---
[facility] A Service of [facility] & [facility] RADIOLOGY TEXT RESULTS PATIENT: ANGELA DOUGLAS LOCATION: [facility] : 44 UNIT #: [id number] AGE: [address]: Raymond Pompa MD SEX: F ORDER DR: [id number] [facility] [address] [place], [place] [address] [id number] E MR#: [id number] Acc #: [id number] NAME: ANGELA DOUGLAS. : 1945 SEX: F STUDY DATE/TIME: 08/01/2016 10:46 UNIT: [facility] ROOM: STUDY DESCRIPTION: CT Abd and Pelv Wo Cont Attending Physician: Raymond Pompa M.D. Ordering Physician: Ramyond Pompa M.D. Primary Care Physician: Jarod Duran Aprn MEDICAL IMAGING REPORT This report is preliminary unless electronic signature is present EXAM CT abdomen and pelvis without contrast. DATE 08/01/2016 HISTORY 71-year-old female with right lower back pain radiating to the right leg for 2 days. Facial tingling for 1 week. No known trauma. Cholecystectomy. Hysterectomy. COMPARISON CT abdomen and pelvis without contrast, 10/02/2015. PROCEDURE 5 mm axial images from the lung bases through the lesser trochanters without intravenous or enteric contrast. Sagittal and coronal reformatted images were obtained. This CT exam was performed with one or more of the following radiation dose reduction techniques: automatic exposure control, adjustment of mA and/or kV according to patient size, and iterative reconstruction. FINDINGS ABDOMEN FINDINGS: Small nonobstructing stones are demonstrated within each kidney. However, no ureteral stone, hydronephrosis, or hydroureter is seen on either side. No perinephric inflammation is evident. Bilateral renal cysts are present with one of the largest projecting exophytically from the left lower renal pole measuring nearly 2 cm. A 1.8 cm hyperdense lesion (Hounsfield units 41.9) projects exophytically from the right upper renal pole, unchanged from the previous 10/02/2015 exam, favored to represent a hemorrhagic or proteinaceous cyst. A tiny [facility] A Service of [facility] & [facility] RADIOLOGY TEXT RESULTS PATIENT: ANGELA DOUGLAS LOCATION: [facility] : 44 UNIT #: [id number] AGE: [address]: Raymond Pompa MD SEX: F ORDER DR: hyperdense lesion in the left lower renal pole measuring 4 mm is redemonstrated, slightly less hyperdense than on the 10/02/2015 examination but nonetheless favored to represent a hemorrhagic or proteinaceous cyst. Lung bases are free of consolidation. There is a small left pleural effusion layering to a depth of approximately 1.9 cm. Trace pericardial fluid is present, similar to prior examination, and coronary artery calcifications are noted. Cholecystectomy changes. Noncontrast appearance of the liver, spleen, pancreas, right adrenal within normal limits. Low-density left adrenal nodularity unchanged from prior, favored to represent adenomas (Hounsfield units -5.8 to 4.1). The appendix is normal. Diverticular changes are seen within the descending and sigmoid colon without evidence of acute diverticulitis. PELVIS FINDINGS: Hysterectomy. Urinary bladder and rectum within normal limits. No pelvic adenopathy or free fluid. No acute or suspicious osseous abnormalities are identified. IMPRESSION 1. Tiny nonobstructing bilateral renal stones are present, but there is no evidence of ureteral stone, hydronephrosis, hydroureter, or perinephric inflammation. 2. 1.8 cm hyperdense lesion projecting exophytically from the right upper renal pole is unchanged from the CT from 10/02/2015 and had an appearance of a benign cyst on the renal ultrasound from 02/11/2016. Tiny probable hemorrhagic or proteinaceous cyst in the left lower renal pole measuring 4 mm is stable in size. Simple appearing cysts are present in both kidneys. 3. A small left pleural effusion which is slightly increased compared to 10/02/2015. Stable trace pericardial effusion. 4. Cholecystectomy and hysterectomy. 5. Uncomplicated colonic diverticulosis. 6. Tiny umbilical hernia containing fat and fluid, not included in the body of the report. Dictated by... Gracie Fabian M.D. THIS IS AN ELECTRONICALLY VERIFIED REPORT Gracie Fabian M.D. at 08/04/2016 8:30 AM LL/carlos TD: 08/01/2016 12:31 JOB #: [id number] MEDICAL IMAGING REPORT [facility] A Service of [facility] & [facility] RADIOLOGY TEXT RESULTS PATIENT: ANGELA DOUGLAS LOCATION: [facility] #: [id number] : 43 UNIT #: [id number] AGE: [address]: Raymond Pompa MD SEX: F ORDER DR: Page 1 of 1 COPY
[~2016-08-01 09:30] MED LIST changes: -LEVOXYL0.137 MG PO; -POTASSIUM40 MEQ/15 PO; -TOPROL XL PO
[2016-08-01] MEDS ORDERED: LASIX PO (10:00)
[2016-08-01] MEDS ORDERED: AMARYL PO (10:01)
[2016-08-01] MEDS ORDERED: LEVOXYL0.137 MG PO (10:02)
[2016-08-01] MEDS ORDERED: TOPROL XL PO (10:02)
[2016-08-01] MEDS ORDERED: POTASSIUM40 MEQ/15 PO (10:03)
[2016-08-01 10:38] LABS: BASOPHIL# 0.1 X10e3 (0-0.3); BASOPHIL% 0.9 % (0-2.5); EOSINOPHIL# 0.1 X10e3 (0-0.7); EOSINOPHIL% 1.1 % (0.0-7.0); HEMATOCRIT 34.9 % (35.0-45.0); HEMOGLOBIN 11.5 gm/dL (12.0-16.0); LYMPHOCYTE% 25.2 % (17.0-45.0); MEAN CELL VOLUME 85.2 FL (83-96); MEAN CORPUSCULAR HEMOGLOBIN 28.1 PG (28-34); MEAN CORPUSCULAR HGB CONC 32.9 g/dL (30-36); MEAN PLATELET VOLUME 7.7 FL (6.5-11.5); MONOCYTE# 0.6 X10e3 (0-1.0); NEUTROPHIL# 5.3 X10e3 (1.5-7.1); NEUTROPHIL% 64.8 % (40-75); PLATELET COUNT 177 X10e3 (140-420); RED CELL DISTRIBUTION WIDTH 17.2 % (11.0-15.5); WHITE BLOOD COUNT 8.1 X10e3 (4.0-10.5)
[2016-08-01 10:39] LABS: DIFF IND NO
[2016-08-01 11:08] LABS: BUN/CREATININE RATIO 8.5; CALCIUM SERUM 8.1 mg/dL (8.4-10.2); GLOM FILT RATE Estimated 24.3 mL/min (>60)
[2016-08-01 11:10] LABS: POTASSIUM 2.3 mmol/L (3.5-5.1)
[2016-08-01 11:30] LABS: URINE SOURCE CLEAN CATCH
[2016-08-01 11:49] LABS: URINE APPEARANCE SL HAZY; URINE BILIRUBIN NEG (NEG); URINE BLOOD NEG (NEG); URINE COLOR YELLOW; URINE GLUCOSE NORM (NORM); URINE KETONE NEG (NEG); URINE LEUKOCYTE ESTERASE NEG (NEG); URINE NITRATE NEG (NEG); URINE PROTEIN 1+ (NEG); URINE UROBILINOGEN NORM (NORM)
[2016-08-01 12:03] LABS: CULTURE INDICATED? YES; URINE BACTERIA AUWI 1+ (NEGATIVE); URINE SQUAMOUS EPITHELIAL CELL FEW /[HPF]
== END 2016-08-01 16:00 | disposition home or self-care (01) ==
LOC: CED 09:30
PROVIDERS: Emergency Medicine
DX: E87.6 Hypokalemia (principal); E83.42 Hypomagnesemia; M54.5 Low back pain; I25.2 Old myocardial infarction; I11.0 Hypertensive heart disease with heart failure; I50.9 Heart failure, unspecified; E11.9 Type 2 diabetes mellitus without complications; Z79.899 Other long term (current) drug therapy; Z88.8 Allergy status to other drugs, medicaments and biological substances
CPT/HCPCS: 36415; 74176; 80048; 81003; 83735; 85025; 87086; 96374; 99284; J2405; J3475

== ENCOUNTER → 2016-08-02 | Outpatient (CLI) | payer MEDICARE, OTHER ==
[~2016-08-02] MED LIST changes: +LEVOXYL0.137 MG PO; +POTASSIUM40 MEQ/15 PO; +TOPROL XL PO
--- NOTE | ~2016-08-02 | MY8 ---
[facility] Service of [facility] RADIOLOGY TEXT RESULTS PATIENT: ANGELA DOUGLAS LOCATION: [facility] : 44 UNIT #: [id number] AGE: [address]: SADIA NATION APRN SEX: F ORDER DR: [id number] [facility] [address] [place], [place] [address] [id number] O MR#: [id number] Acc #: [id number] NAME: ANGELA DOUGLAS : 1945 SEX: F STUDY DATE/TIME: 08/02/2016 14:51 UNIT: [facility] ROOM: STUDY DESCRIPTION: MY Mammogram Dx Dig Rt Attending Physician: Jarod Nation Aprn Referring Physician: Jonathan Thayer Jr., M.D. Ordering Physician: Jarod Nation Aprn Primary Care Physician: Jarod Nation Aprn MEDICAL IMAGING REPORT This report is preliminary unless electronic signature is present Diagnostic right mammogram, 08/02/2016. INDICATIONS Subareolar nodularity seen on baseline screening mammogram. Patient has no family history of breast cancer. FINDINGS Spot compression right CC and MLO views were obtained in addition to a standard true lateral view. The images confirm the presence of a dominant subareolar nodule on the right measuring up to 2 cm in greatest dimension mammographically. I believe there is an adjacent smaller subareolar nodule as well measuring about 8 mm in size when compressed. No suspicious microcalcifications. Ultrasound of the subareolar right breast was subsequently performed. Ultrasound demonstrates the dominant hypoechoic slightly irregular nodule in the subareolar breast corresponding to the larger mammographic abnormality. This measures up to about 1.6 cm in greatest length and measures up to about 0.7 cm in depth, by about 1.1 cm in width. This is indeterminate and ultrasound-guided core biopsy is recommended. Adjacent to that in the subareolar breast, there is a smaller irregular hypoechoic nodule measuring about 4 mm in size. This could be biopsied as well. Findings and recommendations were discussed with the patient and her daughter at the time of the patient's visit today. Findings were also discussed with Judy, in the breast advocate's office, for physician notification purposes. Of note, the patient is on a blood thinner for cardiac issues and prior stroke. I believe it is safe to proceed with this biopsy with the patient still taking the blood thinner rather than stopping it. This was also discussed with the patient and her daughter. IMPRESSION [facility] A Service of [facility] RADIOLOGY TEXT RESULTS PATIENT: ANGELA DOUGLAS LOCATION: [facility] : 44 UNIT #: [id number] AGE: [address]: SADIA NATION APRN SEX: F ORDER DR: Additional imaging today confirms the presence of 2 subareolar nodules on the right. Ultrasound-guided core biopsy is recommended. See full discussion above. Patients over the age of 40 are entered into a reminder system with target due date for the next mammogram. A result letter will also be sent to the patient. BIRADS: 4 Suspicious abnormality; biopsy should be considered. STAT * RESULT Dictated by... Raymond Dickinson Jr., M.D. THIS IS AN ELECTRONICALLY VERIFIED REPORT Raymond Dickinson Jr., M.D. at 08/03/2016 10:16 AM JHONNY/chiquis TD: 08/02/2016 15:55 JOB #: [id number] MEDICAL IMAGING REPORT Page 1 of 1 COPY
--- NOTE | ~2016-08-02 | US24 ---
[facility] A Service of [facility] & [facility] RADIOLOGY TEXT RESULTS PATIENT: ANGELA DOUGLAS LOCATION: [facility] : 44 UNIT #: [id number] AGE: [address]: SADIA NATION APRN SEX: F ORDER DR: [id number] [facility] [address] [place], [place] [address] [id number] O MR#: [id number] Acc #: [id number] NAME: ANGELA DOUGLAS : 1945 SEX: F STUDY DATE/TIME: 08/02/2016 15:14 UNIT: [facility] ROOM: STUDY DESCRIPTION: US Breast Unilateral Attending Physician: Sadia Nation Referring Physician: Jonathan Thayer Jr., M.D. Ordering Physician: Sadia Nation Primary Care Physician: Sadia Nation MEDICAL IMAGING REPORT This report is preliminary unless electronic signature is present EXAM Right breast ultrasound, 08/02 INDICATIONS Abnormal mammogram showing subareolar nodularity. FINDINGS For a full report, please see mammogram report dated 08/02/2016. Patients over the age of 40 are entered into a reminder system with target due date for the next mammogram. A result letter will also be sent to the patient. BIRADS: 4 Suspicious Abnormality; Biopsy Should Be Considered Dictated by... Raymond Dickinson Jr., M.D. THIS IS AN ELECTRONICALLY VERIFIED REPORT Raymond Dickinson Jr., M.D. at 08/03/2016 10:17 AM JHONNY/sandra TD: 08/02/2016 21:32 JOB #: [id number] MEDICAL IMAGING REPORT Page 1 of 1 COPY
== END | disposition home or self-care (01) ==
LOC: CMAM 14:26
DX: N63 Unspecified lump in breast (principal); I50.9 Heart failure, unspecified; R26.0 Ataxic gait; F34.1 Dysthymic disorder; E11.22 Type 2 diabetes mellitus with diabetic chronic kidney disease; N18.9 Chronic kidney disease, unspecified
CPT/HCPCS: 76641; G0206

== ENCOUNTER → 2016-08-17 | Outpatient (CLI) | payer MEDICARE, OTHER ==
--- NOTE | ~2016-08-17 | MY14 ---
[facility] A Service [facility] RADIOLOGY TEXT RESULTS PATIENT: ANGELA DOUGLAS LOCATION: [facility] : 44 UNIT #: [id number] AGE: [address]: SADIA NATION APRN SEX: F ORDER DR: [id number] [facility] [address] [place], [place] [address] [id number] O MR#: [id number] Acc #: [id number] NAME: ANGELA DOUGLAS. : 1945 SEX: F STUDY DATE/TIME: 08/17/2016 13:57 UNIT: [facility] ROOM: STUDY DESCRIPTION: MY Post Bx Film Attending Physician: Jarod Nation Aprn Referring Physician: Jarod Nation Aprn Ordering Physician: Jarod Nation Aprn Primary Care Physician: Jarod Nation Aprn MEDICAL IMAGING REPORT This report is preliminary unless electronic signature is present EXAM Clip placement mammogram 08/17/2016 INDICATIONS Status post ultrasound-guided core biopsy of two nodules in the subareolar right breast. TECHNIQUE CC and true lateral views were obtained and reviewed with an FDA-approved CAD device COMPARISON 08/02/2016 FINDINGS The clip placement mammogram demonstrates appropriate clip placement with respect to both subareolar nodules including the larger and the smaller nodule. Both nodules are partially obscured by stranding in the subareolar breast tissue from the biopsy. Pathology results are pending. Please see the final pathology report and the separately dictated ultrasound-guided core biopsy report for further details. IMPRESSION 1. Clip placement mammogram demonstrates appropriate clip placement in the larger and secondary smaller subareolar masses in the right breast. Expected post biopsy changes. Please see the final pathology report for further details. Patients over the age of 40 are entered into a reminder system with target due date for the next mammogram. A result letter will also be sent to the patient. BIRADS: 4. Suspicious abnormality; biopsy should be considered. [facility] A Service [facility] RADIOLOGY TEXT RESULTS PATIENT: ANGELA DOUGLAS LOCATION: [facility] : 44 UNIT #: [id number] AGE: [address]: SADIA NATION [employer] SEX: F ORDER DR: Dictated by... Orion Bejarano M.D. THIS IS AN ELECTRONICALLY VERIFIED REPORT Orion Bejarano M.D. at 08/18/2016 7:42 AM VINEET/carmine TD: 08/17/2016 17:52 JOB #: [id number] MEDICAL IMAGING REPORT Page 1 of 1 COPY
--- NOTE | ~2016-08-17 | US201 ---
[id number] [facility] [address] [place], [place] [address] [id number] O MR#: [id number] Acc #: [id number] NAME: ANGELA DOUGLAS : 1945 SEX: F STUDY DATE/TIME: 08/17/2016 13:45 UNIT: [facility] ROOM: STUDY DESCRIPTION: US Breast Guided Bx Add Lesion Attending Physician: Jarod Duran Aprn Referring Physician: Jarod Duran Aprn Ordering Physician: Jarod Duran Aprn Primary Care Physician: Jarod Duran Aprn MEDICAL IMAGING REPORT This report is preliminary unless electronic signature is present EXAM Additional biopsies, right, 08/17/16. INDICATION Prior mammogram and ultrasound studies demonstrated 2 suspicious nodules in the subareolar right breast. Core biopsy has been requested for both lesions. FINDINGS Please see ultrasound breast guided report for results. BIRADS: 4 Suspicious abnormality; biopsy should be considered. Dictated by... Orion Bejarano M.D. THIS IS AN ELECTRONICALLY VERIFIED REPORT Orion Bejarano M.D. at 08/18/2016 5:35 PM Jared TD: 08/17/2016 18:56 JOB #: [id number] MEDICAL IMAGING REPORT Page 1 of 1 COPY
--- NOTE | ~2016-08-17 | US200 ---
[facility] A Service of [facility] RADIOLOGY TEXT RESULTS PATIENT: ANGELA DOUGLAS LOCATION: [facility] : 44 UNIT #: [id number] AGE: [address]: SADIA NATION APRN SEX: F ORDER DR: [id number] [facility]. [place], [place] [address] [id number] MR#: [id number] #: [id number] NAME: ANGELA DOUGLAS : 1945 SEX: F STUDY DATE/TIME: 08/17/2016 13:45 UNIT: [facility] ROOM: STUDY DESCRIPTION: US Breast Guided Bx 1st Lesion Attending Physician: Jarod Nation Aprn Referring Physician: Jarod Nation Aprn Ordering Physician: Jarod Nation Aprn Primary Care Physician: Jarod Nation Aprn MEDICAL IMAGING REPORT This report is preliminary unless electronic signature is present EXAM Ultrasound-guided core biopsy and ultrasound-guided clip placement procedure for 2 subareolar masses in the right breast, 08/17/16. INDICATION Prior mammogram and ultrasound studies demonstrated 2 suspicious nodules in the subareolar right breast. Core biopsy has been requested for both lesions. FINDINGS The patient's prior imaging studies were reviewed. She was deemed an adequate candidate for the procedure. The procedure and risks were explained to the patient. Risks included but not limited to bleeding, infection and damage to adjacent structures. The patient gave both oral and written consent to proceed and the consent form was signed and on the chart prior to the procedure. Prior to the procedure a "time-out" protocol was also followed to confirm patient identity and procedure details. The patient was consented for increased risk of bleeding and bruising related to continuation of anticoagulation therapy up to the time of the procedure. She voiced understanding and agreement to proceed. Survey images here in the department confirmed the presence of the 2 subareolar masses. The right breast was prepped and draped in the usual sterile fashion. Maximum sterile-barrier technique appropriate for procedure guidelines was utilized. This included the use of sterile gloves, sterile instruments, and sterile barriers. Initially, attention was turned to the larger subareolar nodule measuring up to about 1.4 cm. It was adequate visualized to proceed. Local anesthesia was achieved with about 3 mL of a buffered 1% lidocaine solution. Thereafter, a small dermotomy was performed and a 14-gauge core biopsy device was advanced to the margin of the mass. Appropriate needle location was documented with ultrasound throughout and images demonstrating appropriate needle placement were saved to the PACS system. Three separate core specimens [facility] A Service of [facility] RADIOLOGY TEXT RESULTS PATIENT: ANGELA DOUGLAS LOCATION: [facility] : 44 UNIT #: [id number] AGE: [address]: SADIA NATION APRN SEX: F ORDER DR: were obtained from the mass and placed in the formalin solution. Thereafter, using the same skin entrance site an echogenic metallic biopsy clip introducer was advanced to the margin of the mass. Appropriate needle location was documented with ultrasound throughout and images demonstrating appropriate needle placement were saved to the PACS system. The clip was deployed within the mass and seen to be in good position on ultrasound. A clip placement mammogram also confirmed appropriate clip placement within the mass. Next, attention was turned to the smaller subareolar nodule measuring about 6 mm. Local anesthesia was achieved with about 2 mL of a 1% lidocaine solution. A small dermotomy was performed. A second separate 14-gauge core biopsy device was advanced to the margin of the nodule. Appropriate needle location was documented with ultrasound throughout and images demonstrating appropriate needle placement were saved to the PACS system. Three separate core specimens were obtained from the nodule. These were placed in formalin solution. Thereafter, using the same skin entrance site, an echogenic metallic biopsy clip introducer was advanced to the margin of the nodule. Appropriate needle location was documented with ultrasound with images saved to the PACS system. The clip was deployed at the site of the nodule seen to be in good position on ultrasound and on the clip placement mammogram. Hemostasis was achieved at both locations. There was some bruising evident on the patient's scan and on the clip placement mammogram most likely secondary to the patient's continuation of anticoagulation therapy up to the time the biopsy. No distinct hematoma was identified on palpation or on the mammogram. Appropriate aftercare instructions have been provided to the patient and she was in satisfactory position at the conclusion of the procedure. Please see the separately dictated clip placement mammogram for further details and the final pathology report for further details. IMPRESSION 1. Successful ultrasound-guided core biopsy of a subareolar mass in the right breast measuring up to approximately 1.4 cm. 2. Successful ultrasound-guided clip placement within the 1.4 cm subareolar mass. 3. Successful ultrasound-guided core biopsy of a second smaller 6 mm nodule in the subareolar right breast. 4. Successful ultrasound-guided clip placement within the smaller 6 mm mass. 5. Clip placement mammogram demonstrates appropriate clip placement with respect to both biopsy sites. Pathology results are pending. Please see the final pathology report for further details. BIRADS: 4 Suspicious abnormality; biopsy should be considered. [facility] A Service of [facility] RADIOLOGY TEXT RESULTS PATIENT: ANGELA DOUGLAS [id number] UNIT #: [id number] AGE: [address]: SADIA NATION APRN SEX: F ORDER DR: Dictated by... Orion Bejarano M.D. THIS IS AN ELECTRONICALLY VERIFIED REPORT Orion Bejarano M.D. at 08/18/2016 5:35 PM Jared TD: 08/17/2016 18:32 JOB #: [id number] MEDICAL IMAGING REPORT Page 1 of 1 COPY
== END | disposition home or self-care (01) ==
LOC: CWCC 10:00 → CGUS 13:30
DX: N60.81 Other benign mammary dysplasias of right breast (principal); N60.21 Fibroadenosis of right breast
CPT/HCPCS: 88305; G0204

== ENCOUNTER 2016-08-26 04:22 | Inpatient (IN) | payer MEDICARE, OTHER ==
--- NOTE | ~2016-08-26 | HP ---
Unit #: [id number] #: [id number] Patient: ANGELA DOUGLAS [id number] [facility]. [place], [place] [address] [id number] I MR#: [id number] NAME: ANGELA DOUGLAS. ROOM: 51944 Age: 71 Sex: F Admission Date: 08/26/2016 : 1945 Attending Physician: Aminta Rueda M.D. Primary Care Physician: Jarod Duran Aprn HISTORY AND PHYSICAL HISTORY OF PRESENT ILLNESS This is a 71-year-old white female, previously known to our group with a recent hospitalization to [facility] 07/02/2016 through 07/03/2016 for atypical chest pain, hypokalemia, gouty arthritis and a yeast infection. The patient was noted to have chronic systolic congestive heart failure as well as permanent atrial fibrillation which was managed with Eliquis. A two-dimensional echocardiogram was obtained 03/30/2016 and revealed a left ventricular ejection fraction of 20%-25% with grade 3 diastolic dysfunction, moderate mitral regurgitation and moderate to severe tricuspid regurgitation. Previous Lexiscan Cardiolite stress test was completed 09/30/2015, which revealed previous infarct as well as very mild ischemia in the anterior and apical wall. The patient does have a history of coronary artery disease and underwent PCI and stenting at [facility] after a myocardial infarction several years ago. Details have been requested, but are unavailable currently. She is known to have hypertension, hyperlipidemia, diabetes mellitus type 2, cerebrovascular accident in 02/2016, aspirin allergy, chronic kidney disease and obstructive sleep apnea. She presented to the emergency department for complaints of shortness of breath for the past two days. She states that [facility] has been coming to her house as well as physical therapy and a nurse. She has noticed that she has been more short of breath than normal. It is worse at night. She has had some PND and orthopnea. She has to sleep in her recliner. She admits to a runny nose and some nausea, but no vomiting. She denies dizziness, palpitations or syncope. There are no reports of chest pain. She has had some weight gain, but she does not have a scale at her house. She states that she has been told that she needs to follow fluid restriction, but she does not always do this. She does try to follow a low-salt diet and she is compliant with her medications. In the emergency department her temperature was 97.9, pulse 107, blood pressure 137/98 and O2 saturations 98% on 2 liters nasal cannula. Her O2 saturation was apparently borderline low on room air at 93%. Initial labs revealed a BNP of 1,250. Potassium was low at 3.2. White blood cell count was normal. Creatinine was 1.7 with a BUN of 24. The patient is known to have chronic kidney disease. Previous creatinine has been documented at 1.6 to 2.0. Chest x-ray revealed minimal interstitial prominence. EKG revealed atrial fibrillation with no acute findings. Initial cardiac enzymes were negative. She was given a dose of IV Lasix and Xanax. She was admitted for congestive heart failure. PAST MEDICAL HISTORY 1. Recent admission to [facility] 07/02/2016 Unit #: [id number] #: [id number] Patient: ANGELA DOUGLAS through 07/03/2016 for atypical chest pain, hypokalemia, gouty arthritis and a yeast infection. 2. Two-dimensional echocardiogram 03/30/2016 revealed a left ventricular ejection fraction of 20%-25%. Grade 3 diastolic dysfunction. Moderate mitral regurgitation, moderate to severe tricuspid regurgitation, RVSP 35 mmHg. 3. Lexiscan Cardiolite stress test 09/30/2015 revealed a questionable nontransmural inferior infarct. Moderate apical infarct, very mild ischemia in the anterior and apical wall. 4. Coronary artery disease and history of myocardial infarction with PCI and stent at [facility] several years ago. Details unavailable. 5. Permanent atrial fibrillation on Eliquis. 6. Chronic systolic/diastolic congestive heart failure. 7. Ischemic cardiomyopathy. 8. Hypertension. 9. Hyperlipidemia. 10. Diabetes mellitus type 2. 11. Obstructive sleep apnea. 12. Cerebrovascular accident 02/2016 with no significant deficits. 13. Aspirin allergy. 14. Chronic kidney disease. 15. Obstructive sleep apnea. 16. Hypothyroidism. 17. Immobility syndrome. 18. Obesity. 19. Chronic kidney disease. 20. Gout. 21. Nonsmoker. PAST SURGICAL HISTORY 1. Left shoulder surgery. 2. Hysterectomy. 3. Cholecystectomy. 4. D and C. 5. Cardiac catheterization with PCI and stent. SOCIAL HISTORY The patient lives in a private residence. She uses a walker to ambulate. She is fairly immobile. She has a visiting nurse and physical therapy as well as [facility] that come to her house. The most activity that she has done in the last few weeks is going to latter day. FAMILY HISTORY Her mother of a myocardial infarction at the age of 70. ALLERGIES Iodine, aspirin, prednisone, famotidine, simvastatin, Benadryl, meloxicam and aliskiren. HOME MEDICATIONS A list of home medications is unavailable at this time, but have been requested and need to be verified. Medications upon discharge included 1. Ipratropium/albuterol q.6 h. p.r.n. 2. Magnesium oxide 250 mg p.o. daily. 3. Eliquis 5 mg p.o. b.i.d. 4. Atorvastatin 80 mg p.o. at nighttime. 5. Toprol succinate 75 mg p.o. b.i.d. 6. Tradjenta 5 mg p.o. daily. Unit #: [id number] #: [id number] Patient: ANGELA DOUGLAS 7. Furosemide 40 mg p.o. b.i.d. 8. Hydralazine 50 mg p.o. b.i.d. 9. Ferrous sulfate 325 mg p.o. daily. 10. Allopurinol 100 mg p.o. daily. 11. Tramadol 50 mg p.o. q.6 h. p.r.n. pain. 12. Potassium chloride 20 mEq p.o. b.i.d. 13. Amaryl 40 mg p.o. daily. 14. Levothyroxine 150 mcg p.o. daily. 15. Imdur 30 mg p.o. daily. 16. Nitroglycerin 0.4 mg sublingual p.r.n. chest pain. 17. Vitamin D 2000 units p.o. weekly. REVIEW OF SYSTEMS Ten point review of systems is negative except for details above in history of present illness. PHYSICAL EXAMINATION GENERAL: This is a 71-year-old white female in no acute distress. VITALS: Temperature 97.9, pulse 101, blood pressure 136/97. SKIN: Warm and dry. NECK: Supple. No jugular venous distension. No hepatojugular reflux. Normal carotid upstrokes. No carotid bruits auscultated. LUNGS: Bilateral breath sounds are diminished in the bases. Respirations even and unlabored. No rales, rhonchi or wheezes. HEART: S1 and S2. Irregularly regular. No murmurs, rubs or gallops. ABDOMEN: Soft, nontender and nondistended. Positive bowel sounds auscultated four quadrants. No ascites noted. EXTREMITIES: Lower extremities have 1+ pitting edema. Dorsalis pedis and posterior tibial pulses 2+. Capillary refill less than 3 seconds. DIAGNOSTIC STUDIES IMAGING: Chest x-ray reveals minimal interstitial prominence. LABORATORY: White blood cell count 9.6, hemoglobin 11.4, hematocrit 35.1, platelets 170, sodium 140, potassium 3.2, chloride 103, CO2 27, BUN 24, creatinine 1.7, glucose 321. Previous creatinine 1.6 to 2.0. BNP 1,250. [id number] troponin 0.05 and 0.05. CARDIOVASCULAR: Electrocardiogram reveals atrial fibrillation. Left axis deviation. T wave abnormality in the lateral leads, unchanged from previous study. QTC 461 milliseconds. ASSESSMENT 1. Acute on chronic biventricular congestive heart failure. 2. Ischemic cardiomyopathy with left ventricular ejection fraction of 20%-25% and grade 3 diastolic dysfunction. 3. Valvular heart disease with moderate mitral regurgitation, moderate to severe tricuspid regurgitation. 4. Coronary artery disease with a history of myocardial infarction, PCI and stent at [facility] several years ago. Details are unavailable. 5. Recent Lexiscan Cardiolite stress test 09/2015 with a very mild amount of ischemia in the anterior and apical wall. 6. Permanent atrial fibrillation on Eliquis. 7. Hypertension. 8. Hyperlipidemia. 9. Diabetes mellitus type 2. 10. Obesity. 11. Obstructive sleep apnea. Unit #: [id number] #: [id number] Patient: ANGELA DOUGLAS 12. History of cerebrovascular accident in 02/2016. 13. Chronic kidney disease. 14. Hypokalemia. 15. Aspirin allergy. PLAN 1. The patient presented to the hospital with complaints of shortness of breath. She was admitted for congestive heart failure. 2. She has been placed on strict intake and output fluid restriction and a healthy heart diet. 3. She has been started on Lasix 40 mg Iv b.i.d. as well as topical nitrates. 4. Due to a low ejection fraction and significant shortness of breath, she will be started on dobutamine drip. Her beta ev will be held while dobutamine is infusing. 5. A list of her home medications will be reviewed. 6. There are no reports of chest pain. Will trend cardiac enzymes and EKG. 7. Previous cardiac catheterization report from [facility] will be requested and reviewed. 8. The patient has a significant shortness of breath. PE is doubtful due to chronic Eliquis, but will check a d-dimer. 9. The patient's potassium has been supplemented. 10. Dr. Vences with nephrology will be consulted to assist with volume status and chronic kidney disease. 11. The patient has a low ejection fraction of 20%-25%. She should be considered for an atrial implantable cardioverter defibrillator. Dictated by Huma Edward APRN for Sandy Gonzáles TD: 08/26/2016 10:01 JOB #: [id number] HISTORY AND PHYSICAL Page 1 of 1 X X HISTORY AND PHYSICAL
--- NOTE | ~2016-08-26 | CR72 ---
[facility] A Service [facility] RADIOLOGY TEXT RESULTS PATIENT: ANGELA DOUGLAS LOCATION: [facility] : 44 UNIT #: [id number] AGE: [address]: Aminta Rueda MD SEX: F ORDER DR: [id number] [facility] [address] [facility]. [place], [place] [address] [id number] MR#: [id number] Acc #: [id number] NAME: ANGELA DOUGLAS. : 1945 SEX: F STUDY DATE/TIME: 08/26/2016 4:48 UNIT: [facility] ROOM: STUDY DESCRIPTION: CR Chest Single View Portable Attending Physician: Emmy Shoemaker M.D. Ordering Physician: Raymond Pompa M.D. Primary Care Physician: Zaid Duran MEDICAL IMAGING REPORT This report is preliminary unless electronic signature is present EXAM Portable chest 08/26/2016 INDICATION Shortness of air starting tonight. COMPARISON 06/30/2016. FINDINGS A portable view of the chest was obtained. There is minimal interstitial prominence without focal infiltrates. The heart size is normal. A left shoulder prosthesis is present. IMPRESSION There is very minimal interstitial prominence which may be due to poor inspiration. There are no focal infiltrates. Dictated by... Levi Hayes M.D. THIS IS AN ELECTRONICALLY VERIFIED REPORT Levi Hayes M.D. at 08/26/2016 1:55 PM BALDO/evelyn TD: 08/26/2016 06:07 JOB #: [id number] MEDICAL IMAGING REPORT [facility] A Service [facility] RADIOLOGY TEXT RESULTS PATIENT: ANGELA DOUGLAS LOCATION: [facility] : 44 UNIT #: [id number] AGE: [address]: Aminta Rueda MD SEX: F ORDER DR: Page 1 of 1 COPY
--- NOTE | ~2016-08-26 | DS ---
Unit #: [id number] #: [id number] Patient: ANGELA DOUGLAS [id number] [address] [id number] I MR#: [id number] NAME: ANGELA DOUGLAS. ROOM: 575 Age: 71 Sex: F Admission Date: 08/28/2016 : 1945 Discharge Date: 08/31/2016 Attending Physician: Aminta Rueda M.D. Primary Care Physician: Jarod Duran Aprn DISCHARGE SUMMARY DISCHARGE DIAGNOSES 1. Acute on chronic systolic congestive heart failure with a left ventricular ejection fraction of 20% to 25%, now compensated. 2. Acute kidney injury on chronic kidney disease stage 3/4, stable. 3. A 2D echocardiogram on March 30, 2016, revealed an ejection fraction of 20% to 25%, grade 3 diastolic dysfunction, moderate mitral regurgitation, moderate to severe tricuspid regurgitation, and right ventricular systolic pressure 35 mmHg. 4. Lexiscan Cardiolite stress test on September 30, 2015, revealed questionable nontransmural inferior infarct and moderate apical infarct with very mild ischemia in the anterior and apical wall. 5. Coronary artery disease with history of myocardial infarction, status post percutaneous coronary intervention and stents at [facility] years ago. 6. Permanent atrial fibrillation, on chronic anticoagulation with Eliquis. 7. Ischemic cardiomyopathy. 8. Hypertension. 9. Hyperlipidemia. 10. Diabetes mellitus type 2. 11. Obstructive sleep apnea. 12. History of cerebrovascular accident in February 2016. 13. Hypothyroidism. 14. Obesity. 15. Acute gout, improved. 16. Mild anemia. DISCHARGE MEDICATIONS 1. Eliquis 2.5 mg p.o. b.i.d. 2. Tylenol 650 mg p.o. q.6 hours p.r.n. for pain. 3. Atorvastatin 80 mg p.o. at bedtime. 4. Betapace 40 mg p.o. b.i.d. 5. Tradjenta 5 mg p.o. daily. 6. Lasix 40 mg p.o. daily. 7. Lisinopril 5 mg p.o. daily. 8. NovoLog high-dose sliding scale protocol a.c. and at bedtime. 9. Ferrous sulfate 325 mg p.o. daily. 10. Allopurinol 100 mg p.o. daily. 11. Colchicine 0.6 mg p.o. b.i.d. for 3 days, then 0.3 mg p.o. b.i.d. 12. Ultram 50 mg p.o. q.6 hours p.r.n. for pain. 13. Potassium chloride 20 mEq p.o. daily. 14. Amaryl 4 mg p.o. at bedtime. 15. Levothyroxine 0.15 mg p.o. daily before breakfast. 16. Nitroglycerin 0.4 mg sublingual as needed for chest pain. Unit #: [id number] #: [id number] Patient: ANGELA DOUGLAS HOSPITAL COURSE This is a 71-year-old white female known to our group with a past medical history of coronary artery disease, status post previous PCI and stent at [facility] several years ago. Patient is known to have ischemic cardiomyopathy with an ejection fraction of 20% to 25%, as well as grade 3 diastolic dysfunction and some valvular disease. She is known to have permanent atrial fibrillation on Eliquis, hypertension, hyperlipidemia, diabetes mellitus type 2, cerebrovascular accident, obstructive sleep apnea, and chronic kidney disease. She presented to [facility] on August 26, 2016, with complaints of shortness of breath. Please see details in the History and Physical. Her BNP was 1250. Potassium was low at 3.2. Creatinine was 1.7 with a BUN of 24. Her glucose levels have ranged from 106 to 164, but she has had some occasional high readings up to 297. She is on oral agents, as well as a sliding scale protocol. Hemoglobin A1c is stable at 6.6. Chest x-ray revealed mild interstitial prominence. EKG revealed atrial fibrillation with no acute findings. Cardiac enzymes were negative, and she ruled out for myocardial infarction. She was admitted for acute on chronic systolic congestive heart failure. She was started on diuretics. She was started on a dobutamine drip, and her beta ev was held briefly. The dobutamine was stopped. Dr. Bah with Nephrology was consulted for chronic kidney disease and volume management. The patient was diuresed, and her diuretics were changed to oral dosing. She did have issues with her atrial fibrillation and rate control. Her metoprolol succinate was discontinued, and she was placed on Betapace. Her QTc was monitored and has been stable with most recent calculation at 465 msec. Creatinine has ranged from 1.6 to 1.8. Her volume has improved, and she is now on oral diuretics. Her Eliquis was decreased to renal dosing. She did complain of myalgias which were thought to be due to gout. She was given colchicine, and her pain has improved. Her atrial fibrillation is currently rate controlled with rates in the 80s to 90s. The patient's D-dimer was elevated. Due to the use of oxygen and chronic kidney disease, no CTA of the chest could be completed. The patient underwent a V/Q scan on August 26, 2016, which revealed low probability for PE. She has been evaluated by PT/OT and has been determined to qualify for rehab. She is stable and will be discharged to rehab today. The patient has been educated on CHF. She has been instructed to follow up with Dr. Bah and Dr. Rueda as an outpatient. MANGLE TENDER Dr. Bah with Nephrology. DIAGNOSTIC STUDIES LABORATORY: White blood cell count 10.9, hemoglobin 10.7, hematocrit 32.4, and platelets 176,000. Sodium 131, potassium 4, chloride 92, CO2 of Unit #: [id number] #: [id number] Patient: ANGELA DOUGLAS A 29, BUN 29, creatinine 1.8, and glucose 297. Hemoglobin A1c 6.6. TSH 5.53. D-dimer 1271. IMAGING: Chest x-ray revealed very minimal interstitial prominence. V/Q scan on August 26, 2016, revealed low probability for PE. PHYSICAL EXAMINATION VITAL SIGNS: Temperature 98.5, pulse 83, and blood pressure 117/97. CONSTITUTIONAL: This is a 71-year-old white female in no acute distress. SKIN: Warm and dry. NECK: Supple. No jugular vein distention. No hepatojugular reflux. Normal carotid upstrokes. No carotid bruits auscultated. HEART: S1 and S2. Irregularly irregular. No rubs or gallops. LUNGS: Bilateral breath sounds have good air entry throughout lung simon. Respirations even and nonlabored. No rales, rhonchi, or wheezes. ABDOMEN: Soft, nontender, and nondistended. Positive bowel sounds auscultated x4 quadrants. No ascites noted. EXTREMITIES: Bilateral lower extremities have no pretibial pitting edema. DP and PT pulses 2+. Capillary refill less than 3 seconds. DISCHARGE INSTRUCTIONS 1. Patient will be discharged to rehab today. 2. Follow up with Dr. Bah in two to four weeks. 3. Follow up with Dr. Rueda on October 25, 2016, at 1:15 p.m. 4. Congestive heart failure education. 5. No spironolactone due to chronic kidney disease. Could consider starting as an outpatient. 1. Dictated by... Huma Edward APRN for Sandy Gonzáles TD: 08/31/2016 16:04 JOB #: [id number] DISCHARGE SUMMARY Page 1 of 1 X X DISCHARGE SUMMARY
--- NOTE | ~2016-08-26 | EKG ---
PATIENT: ANGELA DOUGLAS UNIT #: [id number] Ventricular Rate: 84 BPM Atrial Rate: 322 BPM QRS Duration: 100 ms Q-T Interval: 418 ms QTC Calculation(Bezet): 493 ms Calculated R [place]: -38 degrees Calculated T [place]: -124 degrees Diagnosis Line: Atrial fibrillation with PVC's Diagnosis Line: Left axis deviation Diagnosis Line: Poor R wave progression questionable lead position Diagnosis Line: or body habitus Diagnosis Line: Nonspecific ST and T wave abnormality Diagnosis Line: Abnormal ECG Diagnosis Line: When compared with ECG of 30-AUG-2016 06:38, Diagnosis Line: No significant change was found Diagnosis Line: T wave inversion more evident in Inferior leads Diagnosis Line: Nonspecific T wave abnormality, worse in Anterior Diagnosis Line: leads Diagnosis Line: Confirmed by GUTIERREZ WILBURN MD ([id number]) on Diagnosis Line: 09/01/2016 7:19:51 AM INTERPRETING ALEJANDRA LIN
--- NOTE | ~2016-08-26 | CO ---
Unit #: [id number] #: [id number] Patient: ANGELA ROSARIO [id number] [address] [address] [id number] MR#: [id number] NAME: ANGELA ROSARIO. ROOM: 575 Age: 71 Sex: F Admission Date: 08/28/2016 : 1945 Attending Physician: Aminta Rueda M.D. Primary Care Physician: Zaid Duran Consultation Date: 08/26/2016 CONSULTATION REPORT REASON FOR CONSULTATION Chronic kidney disease. HISTORY OF PRESENT ILLNESS Ms. 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 She says this has been going on for about 2 days. She has not been able to lie flat and the shortness of breath got to the point where she decided she needed to come to the emergency room. She is followed by [facility] at home and is noted to be on Lasix daily. She does feel like she has gained some fluid weight, but there are no scale weights that she has recorded from home. She denied any chest pain. No diarrhea. No urinary complaints. No rashes or itching. No flank pain. PAST MEDICAL HISTORY Significant for CKD stage 3/4, combined heart failure with an ejection fraction of 20% to 25%, chronic atrial fibrillation, coronary artery disease with stenting, chronic anemia, history of stroke affecting her speech just slightly, diabetes, hypertension, hyperlipidemia, gout, obstructive sleep apnea. PAST SURGICAL HISTORY She has had a hysterectomy and a cholecystectomy, shoulder surgery, and D and C x2. HOME MEDICATIONS According to the med rec sheet are as follows. Tradjenta 5 mg a day, hydralazine 50 mg b.i.d., Eliquis 5 mg b.i.d., atorvastatin 80 mg at bedtime, nitroglycerin p.r.n., Ultram 50 mg every 6 hours, iron tablet daily, Imdur 30 mg daily, allopurinol 100 mg a day, Lasix 40 mg daily, Amaryl 4 mg at bedtime, Levoxyl 137 mcg daily, Toprol-XL 100 mg b.i.d., potassium chloride 40 mEq daily. ALLERGIES She has multiple drug allergies including iodine, aspirin, prednisone, cimetidine, simvastatin, diphenhydramine, meloxicam, and aliskiren. FAMILY HISTORY Significant for heart disease. There is no family history of kidney problems or dialysis. SOCIAL HISTORY The patient is now living at home, but she says that she lives with Unit #: [id number] #: [id number] Patient: ANGELA ROSARIO A another elderly individual. She denies alcohol, tobacco, or drug use. REVIEW OF SYSTEMS A complete 12-point review of systems was completed with the above findings. In addition, she denies any headaches or dizziness. She has had some nasal drainage, but no nose bleed. She does have some postnasal drip, but no sore throat or earache. Some cough, no hemoptysis. Some nausea, but no vomiting. No bright red blood per rectum or melena. No dysuria. No hematuria. No significant swelling. No pruritus. No back pain. No chills, no night sweats, or hot flashes. No intolerance to heat or cold. No bleeding issues. Again, she does think she has probably gained some weight at home. Unless otherwise indicated, the review of systems was negative. PHYSICAL EXAMINATION VITAL SIGNS: The patient is afebrile. Pulse 97, respiratory rate 27, blood pressure 143/88. GENERAL: This is a pleasant 71-year-old female, sitting up somewhat in bed, alert. Does seem a little bit short of breath, but in no acute distress. HEENT: Head is atraumatic and normocephalic. Eyes show pink conjunctivae with no scleral icterus. No nasal drainage or nosebleed. Oropharynx is moist. No thrush. She does have a narrow posterior pharyngeal airway. NECK: Thick with no rigidity. HEART: Irregularly irregular with murmur present. No gallop or rub appreciated. LUNGS: Have diminished air entry anteriorly with no wheezing or rhonchi. Breathing is just very mildly labored at rest on 1 L of oxygen. ABDOMEN: Protuberant, soft, and nontender. Bowel sounds are present without masses. EXTREMITIES: No lower extremity clubbing or cyanosis. She has trace ankle edema bilaterally. SKIN: Dry with no rashes. MUSCULOSKELETAL: No joint effusions noted. No CVA tenderness to palpation. NEUROLOGICAL: The patient is able to move all 4 extremities. She says that she does have some mild weakness in her legs. LYMPHATIC: There is no neck or cervical lymphadenopathy. PSYCHIATRIC: Mood and affect appeared normal. DIAGNOSTIC STUDIES IMAGING STUDIES: Chest x-ray was read as very minimal interstitial prominence. No focal infiltrates. LABORATORY RESULTS: D-dimer was elevated. Troponin negative. BNP 1250. Chemistry early this morning; sodium 140, potassium 3.2, chloride 103, bicarb 27, glucose 321, BUN 24, creatinine 1.7. CBC noteworthy for hemoglobin of 11.4 with a normal platelet count. Prior labs showed a creatinine of 2 from 07/2016, which looks to be her baseline. Previous urine here have demonstrated some intermittent low-grade proteinuria and no micro hematuria. ASSESSMENT AND PLAN 1. Chronic kidney disease, stage 3/4. Overall, the patient's kidney function appears to be near her baseline. She does have an underlying history of hypertension and diabetes, which is likely the cause of her chronic kidney disease. We will need to monitor with her diuretic need. I will check a uric acid level with her history of gout. 2. Congestive heart failure, which is combined systolic and diastolic Unit #: [id number] #: [id number] Patient: ANGELA ROSARIO with valvular heart disease as well. We will increase her Lasix to 40 mg q.8 hours and monitor diuresis. 3. Hypok[address]emia. Dr. Rueda has already ordered replacement. We will recheck a potassium and magnesium level later tonight. 4. Anemia of chronic disease. She is on an iron supplement. We will update iron stores. 5. History of gout, on allopurinol. 6. History of coronary artery disease and previous stenting. 7. Chronic atrial fibrillation, on Eliquis. 8. History of hypertension. Home medications have been renewed. 9. Diabetes. 10. History of stroke. I would like to thank Dr. Rueda for this consult and the opportunity to participate in evaluation and care of Ms. Rosario. Dictated by... Compa Vences Jr., M.D. JOSHUA/marta TD: 08/27/2016 20:11 JOB #: [id number] CONSULTATION REPORT Page 1 of 1 X Compa Vences MD CONSULTATION REPORT
--- NOTE | ~2016-08-26 | EKG ---
PATIENT: ANGELA DOUGLAS UNIT #: [id number] Ventricular Rate: 103 BPM Atrial Rate: 102 BPM QRS Duration: 100 ms Q-T Interval: 352 ms QTC Calculation(Bezet): 461 ms Calculated R [place]: -31 degrees Calculated T [place]: -97 degrees Diagnosis Line: Atrial fibrillation with rapid ventricular Diagnosis Line: response with occasional atrial-paced complexes Diagnosis Line: Left axis deviation Diagnosis Line: Cannot rule out Anterior infarct , age Diagnosis Line: undetermined Diagnosis Line: ST and T wave abnormality, consider lateral ischemia Diagnosis Line: Abnormal ECG Diagnosis Line: When compared with ECG of 30-JUN-2016 05:42, Diagnosis Line: Incomplete left bundle branch block is no longer Diagnosis Line: Present Diagnosis Line: Confirmed by SUSHIL GEORGES MD ([id number]) on Diagnosis Line: 08/28/2016 10:40:26 AM INTERPRETING MD: REN
--- NOTE | ~2016-08-26 | EKG ---
PATIENT: ANGELA DOUGLAS UNIT #: [id number] Ventricular Rate: 96 BPM Atrial Rate: 416 BPM QRS Duration: 102 ms Q-T Interval: 392 ms QTC Calculation(Bezet): 495 ms Calculated R [place]: 45 degrees Calculated T [place]: -90 degrees Diagnosis Line: Atrial fibrillation Diagnosis Line: Possible Anterior infarct (cited on or before Diagnosis Line: 26-AUG-2016) Diagnosis Line: ST and T wave abnormality, consider inferior Diagnosis Line: ischemia or digitalis effect Diagnosis Line: Abnormal ECG Diagnosis Line: When compared with ECG of 26-AUG-2016 04:30, Diagnosis Line: (unconfirmed) Diagnosis Line: No significant change was found Diagnosis Line: Confirmed by SUSHIL GEORGES MD ([id number]) on Diagnosis Line: 08/28/2016 10:47:44 AM INTERPRETING MDFlaco MCCLURE
--- NOTE | ~2016-08-26 | EKG ---
PATIENT: ANGELA DOUGLAS UNIT #: [id number] Ventricular Rate: 124 BPM Atrial Rate: 129 BPM QRS Duration: 98 ms Q-T Interval: 324 ms QTC Calculation(Bezet): 465 ms Calculated R [place]: -32 degrees Calculated T [place]: 167 degrees Diagnosis Line: Atrial fibrillation with rapid ventricular Diagnosis Line: response Diagnosis Line: Left axis deviation Diagnosis Line: T wave abnormality, consider lateral ischemia or Diagnosis Line: digitalis effect Diagnosis Line: Abnormal ECG Diagnosis Line: When compared with ECG of 27-AUG-2016 05:58, Diagnosis Line: T wave inversion no longer evident in Inferior Diagnosis Line: leads Diagnosis Line: Confirmed by GUTIERREZ WILBURN MD ([id number]) on Diagnosis Line: 08/30/2016 10:40:30 PM INTERPRETING MD: DELIA
--- NOTE | ~2016-08-26 | NM69 ---
[facility] A Service of [facility] RADIOLOGY TEXT RESULTS PATIENT: ANGELA DOUGLAS LOCATION: [facility] 57 : 43 UNIT #: [id number] AGE: [address]: Aminta Rueda MD SEX: F ORDER DR: [id number] [facility] [address] [place], [place] [address] [id number] I MR#: [id number] Acc #: [id number] NAME: ANGELA DOUGLAS. : 1945 SEX: F STUDY DATE/TIME: 08/26/2016 17:37 UNIT: [facility] ROOM: [facility] STUDY DESCRIPTION: NM Pulm Vent and Perf Attending Physician: Aminta Rueda M.D. Ordering Physician: Aminta Rueda M.D. Primary Care Physician: Jarod Duran Aprn MEDICAL IMAGING REPORT This report is preliminary unless electronic signature is present EXAM Ventilation/perfusion lung scan, 08/26/16. HISTORY 71-year-old female hospital inpatient with new onset shortness of air and chest pain tonight. Elevated D-dimer. Past history of stroke and myocardial infarction. History of congestive heart failure. DOSE 29.9 mCi technetium labeled DTPA inhaled in aerosol. 5.20 mCi technetium labeled MAA administered intravenously. FINDINGS Mildly heterogeneous distribution of inhaled tracer throughout both lungs on the ventilation images. Perfusion images are within normal limits. No unmatched perfusion defect is identified to suggest pulmonary embolism. IMPRESSION Low probability of pulmonary embolism. Dictated by... Timoteo Malik M.D. THIS IS AN ELECTRONICALLY VERIFIED REPORT Timoteo Malik M.D. at 08/30/2016 10:33 AM RACHEAL/chiquis TD: 08/26/2016 23:30 JOB #: [id number] MEDICAL IMAGING REPORT Page 1 of 1 COPY
[2016-08-26 04:59] LABS: BASOPHIL# 0.1 X10e3 (0-0.3); BASOPHIL% 0.8 % (0-2.5); EOSINOPHIL# 0.1 X10e3 (0-0.7); EOSINOPHIL% 0.6 % (0.0-7.0); HEMATOCRIT 35.1 % (35.0-45.0); HEMOGLOBIN 11.4 gm/dL (12.0-16.0); LYMPHOCYTE# 1.5 X10e3 (1.0-3.5); LYMPHOCYTE% 15.9 % (17.0-45.0); MEAN CELL VOLUME 87.4 FL (83-96); MEAN CORPUSCULAR HEMOGLOBIN 28.3 PG (28-34); MEAN CORPUSCULAR HGB CONC 32.4 g/dL (30-36); MEAN PLATELET VOLUME 9.1 FL (6.5-11.5); MONOCYTE# 0.6 X10e3 (0-1.0); MONOCYTE% 5.9 % (3.0-12.0); NEUTROPHIL# 7.4 X10e3 (1.5-7.1); NEUTROPHIL% 76.8 % (40-75); PLATELET COUNT 170 X10e3 (140-420); RED BLOOD COUNT 4.01 X10e (3.90-5.30); RED CELL DISTRIBUTION WIDTH 16.9 % (11.0-15.5); WHITE BLOOD COUNT 9.6 X10e3 (4.0-10.5)
[2016-08-26 05:04] LABS: POC - CKMB <1.0 ng/mL (0.0-7.9); POC - TROPONIN <0.05 ng/mL (<=0.05)
[2016-08-26 05:04] LABS: DIFF IND NO
[2016-08-26 06:14] LABS: BUN/CREATININE RATIO 14.11; CALCIUM SERUM 8.6 mg/dL (8.4-10.2); CREATININE SERUM 1.7 mg/dL (0.6-1.4); GLOM FILT RATE Estimated 29.6 mL/min (>60); POTASSIUM 3.2 mmol/L (3.5-5.1)
[2016-08-26 07:10] LABS: POC - CKMB <1.0 ng/mL (0.0-7.9); POC - TROPONIN <0.05 ng/mL (<=0.05)
[2016-08-26 14:05] LABS: CK TOTAL 34 IU/L (26-140)
[2016-08-26 19:41] LABS: MAGNESIUM 1.7 mg/dL (1.6-3.0); POTASSIUM 3.1 mmol/L (3.5-5.1)
[2016-08-26 19:50] LABS: CK TOTAL 30 IU/L (26-140)
[2016-08-27 05:28] LABS: BASOPHIL# 0.1 X10e3 (0-0.3); EOSINOPHIL# 0.1 X10e3 (0-0.7); HEMATOCRIT 32.2 % (35.0-45.0); HEMOGLOBIN 10.6 gm/dL (12.0-16.0); LYMPHOCYTE# 1.3 X10e3 (1.0-3.5); LYMPHOCYTE% 19.6 % (17.0-45.0); MEAN CELL VOLUME 86.2 FL (83-96); MEAN CORPUSCULAR HEMOGLOBIN 28.4 PG (28-34); MEAN CORPUSCULAR HGB CONC 32.9 g/dL (30-36); MEAN PLATELET VOLUME 8.6 FL (6.5-11.5); MONOCYTE# 0.4 X10e3 (0-1.0); MONOCYTE% 5.5 % (3.0-12.0); NEUTROPHIL# 4.7 X10e3 (1.5-7.1); NEUTROPHIL% 71.9 % (40-75); PLATELET COUNT 147 X10e3 (140-420); RED BLOOD COUNT 3.74 X10e (3.90-5.30); RED CELL DISTRIBUTION WIDTH 17.2 % (11.0-15.5); WHITE BLOOD COUNT 6.5 X10e3 (4.0-10.5)
[2016-08-27 05:36] LABS: DIFF IND NO
[2016-08-27 06:15] LABS: CALCIUM SERUM 8.2 mg/dL (8.4-10.2); CREATININE SERUM 1.6 mg/dL (0.6-1.4); GLOM FILT RATE Estimated 31.9 mL/min (>60); MAGNESIUM 1.6 mg/dL (1.6-3.0); URIC ACID 6.6 mg/dL (2.6-7.2)
[2016-08-27 06:23] LABS: POTASSIUM 2.6 mmol/L (3.5-5.1)
[2016-08-28 06:34] LABS: BUN/CREATININE RATIO 14.7; CALCIUM SERUM 8.5 mg/dL (8.4-10.2); CREATININE SERUM 1.7 mg/dL (0.6-1.4); GLOM FILT RATE Estimated 29.6 mL/min (>60); POTASSIUM 4.2 mmol/L (3.5-5.1)
[2016-08-29 07:01] LABS: BUN/CREATININE RATIO 14.44; CALCIUM SERUM 8.8 mg/dL (8.4-10.2); CREATININE SERUM 1.8 mg/dL (0.6-1.4); GLOM FILT RATE Estimated 27.6 mL/min (>60); POTASSIUM 4.9 mmol/L (3.5-5.1)
[2016-08-30 06:27] LABS: BUN/CREATININE RATIO 15.62; CALCIUM SERUM 8.9 mg/dL (8.4-10.2); CREATININE SERUM 1.6 mg/dL (0.6-1.4); GLOM FILT RATE Estimated 31.9 mL/min (>60); POTASSIUM 4.4 mmol/L (3.5-5.1)
[2016-08-31 06:25] LABS: HEMATOCRIT 32.4 % (35.0-45.0); HEMOGLOBIN 10.7 gm/dL (12.0-16.0); MEAN CELL VOLUME 85.2 FL (83-96); MEAN CORPUSCULAR HEMOGLOBIN 28.1 PG (28-34); MEAN PLATELET VOLUME 8.6 FL (6.5-11.5); RED BLOOD COUNT 3.8 X10e (3.90-5.30); RED CELL DISTRIBUTION WIDTH 16.6 % (11.0-15.5); WHITE BLOOD COUNT 10.9 X10e3 (4.0-10.5)
[2016-08-31 06:57] LABS: BUN/CREATININE RATIO 16.11; CALCIUM SERUM 8.7 mg/dL (8.4-10.2); CREATININE SERUM 1.8 mg/dL (0.6-1.4); GLOM FILT RATE Estimated 27.6 mL/min (>60); MAGNESIUM 2.1 mg/dL (1.6-3.0)
== END 2016-08-31 18:45 | DRG 291 ==
LOC: CED 04:22 → CEDOF 09:00 → CED 09:00 → C5C 09:00 → CED 09:53 → CEDOF 09:53 → C5C 14:27 → CEDOF 08-28 09:50 → C5C 08-28 09:50
PROVIDERS: Emergency Medicine; Internal Medicine Cardiovascular Disease; Internal Medicine Nephrology
DX: I13.0 Hypertensive heart and chronic kidney disease with heart failure and stage 1 through stage 4 chronic kidney disease, or unspecified chronic kidney disease (principal); I50.23 Acute on chronic systolic (congestive) heart failure; N18.4 Chronic kidney disease, stage 4 (severe); E11.22 Type 2 diabetes mellitus with diabetic chronic kidney disease; N17.9 Acute kidney failure, unspecified; I08.1 Rheumatic disorders of both mitral and tricuspid valves; I48.2 Chronic atrial fibrillation; I25.5 Ischemic cardiomyopathy; I25.10 Atherosclerotic heart disease of native coronary artery without angina pectoris; I25.2 Old myocardial infarction; Z95.5 Presence of coronary angioplasty implant and graft; Z79.4 Long term (current) use of insulin; Z79.01 Long term (current) use of anticoagulants; E78.5 Hyperlipidemia, unspecified; G47.33 Obstructive sleep apnea (adult) (pediatric); Z86.73 Personal history of transient ischemic attack (TIA), and cerebral infarction without residual deficits; E03.9 Hypothyroidism, unspecified; E66.9 Obesity, unspecified; Z68.34 Body mass index [BMI] 34.0-34.9, adult; M10.9 Gout, unspecified; D64.9 Anemia, unspecified; E87.6 Hypokalemia; Z88.8 Allergy status to other drugs, medicaments and biological substances; Z88.6 Allergy status to analgesic agent; Z91.041 Radiographic dye allergy status
CPT/HCPCS: 36415; 71010; 78582; 80048; 82550; 82553; 82947; 83036; 83735; 83880; 84132; 84443; 84484; 84550; 85025; 85027; 85379; 93005; 94640; 94760; 96374; 97110; 97116; 97162; 97166; 97530; 99285; A9540; A9567; G8978-GP; G8979-GP; G8987-GO; G8988-GO; J1250; J1815; J1940; J2405; J2920; J3475